=== PATIENT | male | born 1950 | race Caucasian/White ===

== ENCOUNTER → 2020-04-30 | Outpatient (CLI) | payer MEDICARE, SELFPAY ==
[2020-04-30 15:06] VITALS: BMI 33.2
[2020-04-30 21:54] LABS: Absolute Lymphocyte Count 2.02 X10^3/uL (0.83-4.51); Absolute Neutrophil Count 6.6 X10^3/uL (2.0-7.7); Basophil# 0.04 X10^3/uL; Basophil% 0.4 % (0-1); Eosinophil# 0.33 X10^3/uL; Eosinophils% 3.4 % (0-5); Hematocrit 45.6 % (40-54); Hemoglobin 14.5 g/dL (13.0-16.5); Lymphocyte # 2.02 X10^3/ul (4.0); Lymphocyte % 20.8 % (19-41); Mean Corp Hgb Conc 31.8 g/dL (32-36); Mean Corpuscular Volume 97.4 fL (80-94); Mean Platelet Vol. 10.5 fl (6.2-12.0); Monocyte# 0.74 X10^3/uL; Monocyte% 7.6 % (0-10); NRBC Flagged by Analyzer 0 % (0-5); Neutrophil # 6.57 X10^3/uL (2.7-7.7); Neutrophil % 67.6 % (47-70); Platelet Count 214 K/mm3 (150-450); RBC Distribution Width CV 12.8 % (11.6-14.6); RBC Distribution Width SD 45.5 fl (35.1-43.9); Red Blood Count 4.68 M/mm3 (4.6-6.2); White Blood Count 9.7 K/mm3 (4.4-11.0)
[2020-04-30 22:12] LABS: AST(SGOT) 24 U/L (15-37); Alanine Aminotransfer ALT/SGPT 36 U/L (16-61); Albumin, Serum 3.8 g/dL (3.2-5.0); Alkaline Phosphatase 83 U/L (45-117); Anion Gap 3 (5-15); BUN 17 mg/dL (7-18); Calcium,Total 8.8 mg/dL (8.5-10.1); Chloride 105 mmol/L (98-107); Creatinine, Serum 0.77 mg/dL (0.70-1.30); EST Glomerular Filtration Rate 106 mL/min (>60); Est Glom Filt Rate - Afr Amer 129 mL/min (>60); Globulin 3.7 g/dL (2.2-4.2); Glucose 109 mg/dL (74-106); Potassium 4.1 mmol/L (3.5-5.1); Protein, Total 7.5 g/dL (6.4-8.2); Sodium Level 139 mmol/L (136-145)
[2020-05-02 14:09] LABS: ANTINUCLEAR ANTIBODIES DIRECT Positive (Negative); Anti-Centromere B Ab <0.2 AI (0.0-0.9); Anti-Chromatin <0.2 AI (0.0-0.9); Anti-Jo <0.2 AI (0.0-0.9); Anti-Scleroderma-70 AB <0.2 AI (0.0-0.9); RNP Ab 2.9 AI (0.0-0.9); SJOGREN'S Anti-SS-A test < 0.2 AI (0.0-0.9); SJOGREN'S Anti-SS-B test < 0.2 AI (0.0-0.9); Smith Ab <0.2 AI (0.0-0.9)
[2020-05-02 15:28] LABS: Anti-dsDNA Ab 1 IU/mL (0-9)
== END | disposition home or self-care (01) ==
LOC: OLS.AHF 21:49 → LABSPEC 05-01 07:58
PROVIDERS: PCP Nurse Practitioner; Referring Provider Nurse Practitioner; Visit Provider Nurse Practitioner
DX: L98.9 Disorder of the skin and subcutaneous tissue, unspecified (principal)
CPT/HCPCS: 80053; 85025; 86038; 86225; 86235

== ENCOUNTER → 2021-03-30 | Outpatient (CLI) | payer MEDICARE, SELFPAY ==
[2021-03-30 22:15] LABS: Absolute Neutrophil Count 5.5 X10^3/uL (2.0-7.7); Basophil# 0.03 X10^3/uL; Basophil% 0.4 % (0-1); Eosinophil# 0.18 X10^3/uL; Eosinophils% 2.3 % (0-5); Hemoglobin 14.7 g/dL (13.0-16.5); Lymphocyte % 16.8 % (19-41); Mean Corp Hgb Conc 32.7 g/dL (32-36); Mean Corpuscular Hgb 31.1 pg (27.0-32.0); Mean Corpuscular Volume 95.1 fL (80-94); Mean Platelet Vol. 10.8 fl (6.2-12.0); NRBC Flagged by Analyzer 0 % (0-5); Neutrophil # 5.53 X10^3/uL (2.7-7.7); Neutrophil % 71.4 % (47-70); Platelet Count 185 K/mm3 (150-450); RBC Distribution Width CV 12.6 % (11.6-14.6); RBC Distribution Width SD 44.3 fl (35.1-43.9); Red Blood Count 4.73 M/mm3 (4.6-6.2); White Blood Count 7.8 K/mm3 (4.4-11.0)
[2021-03-30 22:43] LABS: AST(SGOT) 26 U/L (15-37); Alanine Aminotransfer ALT/SGPT 41 U/L (16-61); Albumin, Serum 3.8 g/dL (3.2-5.0); Alkaline Phosphatase 79 U/L (45-117); Anion Gap 10 (5-15); BUN 9 mg/dL (7-18); BUN/Creat Ratio 13.2 RATIO (10-20); Calcium,Total 9.2 mg/dL (8.5-10.1); Chloride 104 mmol/L (98-107); Creatinine, Serum 0.68 mg/dL (0.70-1.30); EST Glomerular Filtration Rate 122 mL/min (>60); Est Glom Filt Rate - Afr Amer 148 mL/min (>60); Globulin 3.7 g/dL (2.2-4.2); Glucose 89 mg/dL (74-106); Potassium 3.9 mmol/L (3.5-5.1); Protein, Total 7.5 g/dL (6.4-8.2); Sodium Level 140 mmol/L (136-145)
== END | disposition home or self-care (01) ==
PROVIDERS: PCP Nurse Practitioner; Visit Provider Nurse Practitioner
DX: M32.9 Systemic lupus erythematosus, unspecified (principal)
CPT/HCPCS: 80053; 85025

== ENCOUNTER → 2021-05-14 09:26 | Outpatient (CLI) | payer MEDICARE, SELFPAY ==
--- NOTE | 2021-05-14 09:45 | RAD_ITS ---
STUDY: X-RAY - ESOPHAGUS (BARIUM SWALLOW) WITH FLUOROSCOPY REASON FOR EXAM: Male, 70 years old. GERD. Dysphagia for 2 weeks. TECHNIQUE: 15 view(s) of the esophagus were obtained following swallowing of barium. FLUOROSCOPY TIME (if supplied): (61 seconds) minutes/seconds COMPARISON: None. FINDINGS: There is no demonstrated esophageal foreign body. There is dilatation of the esophagus with poor peristaltic activity. There is circumferential narrowing of the gastroesophageal junction. This is suggestive of achalasia. The patient ingested a 12 mm tablet of barium without any difficulty. There is atherosclerotic tortuosity of the aortic arch and descending thoracic aorta. Normal visualized pulmonary parenchyma. Normal visualized osseous structures of the thorax. RAD/Esophagus Dual Contrast IMPRESSION: Findings suggestive of achalasia. Electronically Signed: Jimmy You MD at 14:28 EST , Service support ,
== END ==
PROVIDERS: PCP Nurse Practitioner; Visit Provider Otolaryngology
DX: K21.9 Gastro-esophageal reflux disease without esophagitis (principal)
CPT/HCPCS: 74221

== ENCOUNTER 2021-07-20 08:43 | Outpatient (CLI) | payer OTHER, MEDICARE, SELFPAY | END 2021-07-20 23:59 | disposition short-term general hospital (02) | LOC: LABSPEC 08:44 | PROVIDERS: PCP Nurse Practitioner; Visit Provider Physician Assistant Surgical | DX: Z20.822 Contact with and (suspected) exposure to COVID-19 (principal) | CPT/HCPCS: 87635; U0003; U0005 ==

== ENCOUNTER → 2022-06-30 | Outpatient (CLI) | payer MEDICARE, SELFPAY ==
--- NOTE | 2022-06-30 14:55 | RAD_ITS ---
STUDY: X-RAY - LUMBAR SPINE REASON FOR EXAM: Male, 71 years old. Back pain. TECHNIQUE: 3 view(s) of the lumbar spine were obtained. COMPARISON: None FINDINGS: There is straightening of the normal lumbar lordosis. There is no substantial scoliosis. There is a normal alignment of the vertebrae. There is multilevel endplate spondylosis of the lumbar vertebrae. There is multi-level degenerative disc disease with multi-level disc space narrowing. There is no evidence of acute fracture or loss of vertebral axial height. The soft tissue structures are unremarkable. RAD/Lumbar Spine 2 or 3 Views IMPRESSION: Straightened lumbar lordosis with degenerative changes of the lumbar spine. No acute fracture or subluxation. Electronically Signed: Luis Cunningham DO at 22:45 EST ,
== END | disposition home or self-care (01) ==
PROVIDERS: PCP Nurse Practitioner; Referring Provider Anesthesiology Pain Medicine; Visit Provider Anesthesiology Pain Medicine
DX: M47.816 Spondylosis without myelopathy or radiculopathy, lumbar region (principal); M51.36 Other intervertebral disc degeneration, lumbar region
CPT/HCPCS: 72100

== ENCOUNTER → 2022-08-03 | Outpatient (CLI) | payer MEDICARE, SELFPAY ==
--- NOTE | 2022-08-03 10:08 | RAD_ITS ---
EXAM: XR SACRUM AND COCCYX, 2 OR MORE VIEWS CLINICAL INDICATION: FALL fell x 2weeks ago, pain s/c TECHNIQUE: Frontal and lateral views of the sacrum and coccyx. This report was created using [employer] technology. COMPARISON: None. FINDINGS: SACRUM/COCCYX: Unremarkable. No displaced fracture. No destructive or sclerotic lesions. Note that overlapping bowel shadows may however obscure fine detail in the frontal view. Sacroiliac joints are unremarkable. DISC SPACES: Degenerative findings of the hips. Degenerative change of the lumbar spine. SOFT TISSUES: Unremarkable. No soft tissue swelling or gas. RAD/Sacrum-Coccyx min 2 Views IMPRESSION: Degenerative findings of the hips. Electronically Signed: Pablo Mcnulty MD at 19:09 EST Reading Location ID and State: [id number] / [place] , Service support ,
--- NOTE | 2022-08-03 10:08 | RAD_ITS ---
INDICATION: FALL EXAMINATION/TECHNIQUE: X-RAY - XR Pelvis 1 or 2 Views COMPARISON: None. FINDINGS: PELVIC BONES: No displaced fracture, destructive or sclerotic lesions. Note that overlapping bowel shadows may however obscure fine detail. Sacroiliac joints are unremarkable. No widening of the pubic symphysis. HIPS: The articular structures are unremarkable. Degenerative findings of the hips. SOFT TISSUES: Vascular calcification. RAD/Pelvis 1 or 2 Views IMPRESSION: Degenerative findings of the hips. Electronically Signed: Pablo Mcnulty MD at 19:09 EST ,
== END | disposition home or self-care (01) ==
LOC: RAD 10:04
PROVIDERS: PCP Nurse Practitioner; Referring Provider Anesthesiology Pain Medicine; Visit Provider Anesthesiology Pain Medicine
DX: Z04.3 Encounter for examination and observation following other accident (principal); M16.0 Bilateral primary osteoarthritis of hip
CPT/HCPCS: 72170; 72220

== ENCOUNTER → 2022-09-16 | Outpatient (CLI) | payer MEDICARE, SELFPAY ==
--- NOTE | 2022-09-16 10:22 | RAD_ITS ---
STUDY: X-RAY - PELVIS AND RIGHT HIP REASON FOR EXAM: Male, 71 years old. Pain. TECHNIQUE: 3 views of the pelvis and hip on 4 images. COMPARISON: August 03, 2022 FINDINGS: There is a non-specific bowel gas pattern. Stable ovoid calcification projected over the right hip most likely representing an intra-articular osteochondral body measuring 18 mm in diameter. Osteopenia. Normal bilateral iliac wings, sacroiliac joints and visualized sacrum. Normal bilateral superior and inferior pubic rami. Normal pubic symphysis. Normal bilateral ischial tuberosities. Moderate arthrosis of both hips. Sclerosis and cystic changes in both humeral heads compatible with avascular necrosis. No femoral head collapse. RAD/HIP, UNI W/ Pelvis 2-3 Views IMPRESSION: Stable osteopenia with moderate arthrosis of both hips. Changes in both femoral heads compatible with avascular necrosis without collapse. Stable intra-articular osteochondral body of the right hip. Electronically Signed: Prince Pinzon, at 14:53 EDT ,
== END | disposition home or self-care (01) ==
LOC: RAD 10:21
PROVIDERS: PCP Nurse Practitioner; Visit Provider Anesthesiology Pain Medicine
DX: M25.559 Pain in unspecified hip (principal)
CPT/HCPCS: 73502

== ENCOUNTER → 2022-10-16 | Outpatient (CLI) | payer MEDICARE, SELFPAY ==
--- NOTE | 2022-10-16 09:30 | MRI_ITS ---
PROCEDURE: LUMBAR SPINE MRI WITHOUT CONTRAST COMPARISONS: None CLINICAL INDICATION: Low back pain, RIGHT leg pain with radiculopathy, prior surgery TECHNIQUE: Noncontrast lumbosacral spine MRI study was performed multiple sequences in sagittal and axial planes. FINDINGS: Alignment of the lumbosacral spine is normal. Normal vertebral marrow signal. Normal partially visualized sacroiliac joints. The conus medullaris terminates at L1. No abnormal signal within the visualized cord. L1-L2: Disc bulge. Crowding of both traversing L2 nerve roots in the lateral recesses. L2-L3: Disc bulge and facet arthrosis. Mild spinal canal stenosis with impingement upon both traversing L3 nerve roots in the lateral recesses. L3-L4: Disc bulge and facet arthrosis. Mild spinal canal stenosis and compression of both traversing L4 nerve roots in the lateral recesses. Mild bilateral neural foraminal stenosis. L4-L5: Disc bulge. Crowding of both traversing L5 nerve roots in the lateral recesses. Mild bilateral neural foraminal stenosis. L5-S1: 9 mm retrolisthesis. Impingement on both traversing S1 nerve roots in the lateral recesses. Mild bilateral neural foraminal stenosis. Mild paraspinous muscle fatty infiltration. MRI/Spine Lumbar (Routine) IMPRESSION: 1. Disc bulge at all levels with crowding of the traversing nerve root in the lateral recesses, including bilateral nerve root compression at L3-4. 2. Mild bilateral neural foraminal stenosis at L3-4, L4-5, L5-S1. 3. 9 mm L5-S1 retrolisthesis. Electronically Signed: Marco Sheehan MD at 22:49 EDT ,
== END | disposition home or self-care (01) ==
LOC: MRI 08:52
PROVIDERS: PCP Nurse Practitioner; Referring Provider Orthopaedic Surgery; Visit Provider Orthopaedic Surgery
DX: M54.16 Radiculopathy, lumbar region (principal)
CPT/HCPCS: 72148

== ENCOUNTER → 2023-06-16 | Outpatient (CLI) | payer MEDICARE, SELFPAY ==
--- NOTE | 2023-06-16 12:25 | CT_ITS ---
STUDY: CT ABDOMEN AND PELVIS WITH CONTRAST REASON FOR EXAM: Male, 72 years old. Bilateral inguinal hernia RADIATION DOSAGE (If Supplied By Facility): CTDIvol = ( 22.45 ) mGy, DLP = ( 1135.10 ) mGycm TECHNIQUE: Transaxial images were obtained from the dome of the diaphragm to the symphysis pubis with oral contrast. Oral and amp; IV Readi-CAT and amp; 100mL Isovue-370 was administered. Sagittal and coronal images were reconstructed. Individualized dose optimization techniques were used for this CT. COMPARISON: None. FINDINGS: The visualized lung bases are unremarkable. Coronary artery calcification. There is decreased attenuation of the liver consistent with steatosis. Normal gallbladder and extrahepatic biliary system. There are multiple benign calcified granulomata of the spleen. Normal pancreas. Normal bilateral adrenal glands. Normal right kidney. Normal left kidney. Normal visualized stomach. Normal small intestine. Moderate amount of fecal material is seen in the colon. The appendix is visualized and appears normal. There is diffuse atherosclerotic calcification of the abdominal aorta, without a demonstrated aneurysm. Normal inferior vena cava. Normal retroperitoneum. Normal urinary bladder. Moderate bilateral inguinal hernias left greater than right containing nondilated small bowel loops. There are diffuse degenerative changes of the visualized lumbar spine. Straightening of the normal lumbar lordosis. Osteoarthritis of the hip joints. CT/Abdomen/Pelvis WITH Contrast IMPRESSION: Fatty attrition of the liver. Moderate size bilateral inguinal hernias containing nondilated small bowel loops. Electronically Signed: Jimmy You MD at 14:04 EST ,
[2023-06-16 13:05] LABS: CREATININE FINGERSTICK 1.2 mg/dL (0.70-1.30); EGFR FINGERSTICK > 60.0000 mL/min (>60)
== END | disposition home or self-care (01) ==
LOC: CT 12:25
PROVIDERS: PCP Nurse Practitioner; Referring Provider Surgery; Visit Provider Surgery
DX: K40.20 Bilateral inguinal hernia, without obstruction or gangrene, not specified as recurrent (principal)
CPT/HCPCS: 74177; Q9967

== ENCOUNTER → 2023-08-03 | Outpatient (CLI) | payer MEDICARE, SELFPAY ==
--- NOTE | 2023-08-03 14:33 | RAD_ITS ---
EXAM: XR LUMBOSACRAL SPINE, 2 OR 3 VIEWS CLINICAL INDICATION: RADICULOPATHY LUMBAR REGION TECHNIQUE: Frontal and lateral views of the lumbar spine and sacrum. COMPARISON: No relevant prior studies available. FINDINGS: VERTEBRAE: There is mild bony neural foraminal narrowing at L4-5 and L5-S1. Preserved vertebral body height. No fracture. No spondylolisthesis. Preservation of the normal lumbar lordosis. No significant facet arthropathy. DISC SPACES: There is disc space narrowing at L3-4, L4-5 and L5-S1. There are anterior osteophytes at these levels. GASTROINTESTINAL TRACT: Unremarkable as visualized. Included bowel gas pattern is non-obstructive. RAD/Lumbar Spine 2 or 3 Views IMPRESSION: Degenerative changes with disc space narrowing and bony neural foraminal narrowing in the lower lumbar spine. There are no acute osseous abnormalities. Electronically Signed: Shin Box MD at 20:28 EST ,
--- OUTSIDE RECORDS SUMMARY | 2023-08-03 15:15 | XMS RPT_ITS | CCD ---
Author Name Unknown Address [address] [place] [address] Organization [facility] Care Team Providers Care Lead Ramp Service Man Name Role Phone Donell Raymond MD Unavailable Katarina Cox Unavailable Unavailable Marco, Padmini Unavailable Unavailable Marco, Padmini Unavailable Unavailable Lindquist, Shaquille Unavailable Unavailable Marco, Padmini Unavailable Unavailable Marco, Padmini Unavailable Unavailable Lindquist, Shaquille Unavailable Unavailable Marco, Padmini Unavailable Unavailable Marco, Padmini Unavailable Unavailable Mitra Hernandez Primary Care Provider Mitra Hernandez Primary Care Provider [phone] Salas Gonzalez) Primary Care Provider [phone] Mitra Hernandez Primary Care Provider Mitra Hernandez Primary Care Provider KATARINA COX Attending Unavailable MITRA HERNANDEZ Primary Care Unavailable KATARINA COX Attending Unavailable MITRA HERNANDEZ Primary Care Unavailable Allergies Allergy Classification Reported Allergen(s) Allergy Type Date of Onset Reaction(s) Facility (1 source) ANTI-BIOTIC ALLERGY(VERIFY) drug allergy 8 [facility] Work Phone: (1 source) Other Propensity to adverse reactions 7 [facility] [place] (1 source) Ciprofloxacin / fluocinolone Drug Allergy 2 Rash [facility] (5 sources) Ciprofloxacin / fluocinolone Drug Allergy 2 Rash [facility] NEGATED: Highlighted row has been ruled out! (1 source) Other Propensity to adverse reactions 7 [facility] Medications Current Medications Medication Drug Class(es) Dates Sig (Normalized) Sig (Original) acetaminophen 500 mg oral tablet (5 sources) take 5-6 tablets by mouth every four hours as needed for pain acetaminophen (Tylenol) 500 MG tablet Take by mouth every 4 hours as needed for mild pain (1-3). 5-6 tabs a day 0 Active Acetaminophen / HYDROcodone (5 sources) Opioid Agonist HYDROcodone-acet flynn ophen ([place]) 5-325 MG tablet cyclobenzaprine hydrochloride 5 mg oral tablet (5 sources) Muscle Relaxant cyclobenzaprine (Flexeril) 5 MG tablet Take 5 mg by mouth in the morning and 5 mg at noon and 5 mg before bedtime. 0 Active docusate sodium 50 mg oral capsule (5 sources) docusate sodium (Colace) 50 MG capsule Take by mouth 2 times daily. 0 Active furosemide 40 mg oral tablet (6 sources) Loop Diuretic Start: 05-23-2022 take 1 tablet by mouth once daily furosemide (Lasix) 40 MG tablet TAKE 1 TABLET BY MOUTH DAILY 90 tablet 3 05/23/2022 Active Completed/Discontinued Medications Medication Drug Class(es) Dates Sig (Normalized) Sig (Original) aspirin 81 mg oral tablet (8 sources) Nonsteroidal Anti-inflammatory Drug Start: 11-15-2017 ASPIRIN 81 MG TABS Once daily ASPIRIN [id number] Deidra Balderas PA-C Problems Active Problems Problem Classification Problem Date Documented Da te Episodic/Chronic Cardiac arrest and ventricular fibrillation (7 sources) Ventricular fibrillation; Translations: [Ventricular fibrillation] Onset: 07-20-2017 07-20-2017 Chronic Cardiac dysrhythmias (15 sources) Paroxysmal atrial fibrillation; Translations: [Paroxysmal atrial fibrillation] Onset: 06-01-2022 Chronic Congestive heart failure; nonhypertensive (1 source) Chronic systolic heart failure; Translations: [Chronic systolic (congestive) heart failure] Chronic Coronary atherosclerosis and other heart disease (19 sources) Coronary arteriosclerosis; Translations: [Atherosclerotic heart disease of knik coronary artery without angina pectoris] Onset: 06-29-2017 06-29-2017 Chronic Disorders of lipid metabolism (14 sources) Hyperlipidemia; Translations: [Mixed hyperlipidemia] Onset: 07-20-2017 07-20-2017 Chronic Esophageal disorders (3 sources) Achalasia of esophagus; Translations: [Achalasia of cardia] Onset: 11-07-2023 10-13-2023 Episodic Melanomas of skin (3 sources) Malignant melanoma; Translations: [Malignant melanoma of skin, unspecified] Onset: 05-10-2023 04-15-2023 Chronic Occlusion or stenosis of precerebral arteries (1 source) Left carotid artery stenosis; Translations: [Occlusion and stenosis of left carotid artery] Chronic Other connective tissue disease (1 source) Impingement syndrome of left shoulder region; Translations: [Impingement syndrome of left shoulder] Onset: 08-12-2017 08-12-2017 Other lower respiratory disease (1 source) Dyspnea; Translations: [Shortness of breath] Episodic Sera-; endo-; and myocarditis; cardiomyopathy (except that caused by tuberculosis or sexually transmitted disease) (7 sources) Cardiomyopathy; Translations: [Cardiomyopathy, unspecified] Onset: 08-13-2015 07-20-2017 Chronic Residual codes; unclassified (1 source) Bilateral lower limb edema; Translations: [Localized edema] Episodic Spondylosis; intervertebral disc disorders; other back problems (4 sources) Other spondylosis, cervical region; Translations: [Spondylosis without myelopathy or radiculopathy, cervical region] Onset: 08-23-2017 Chronic Substance-related disorders (11 sources) Smoker; Translations: [Nicotine dependence, unspecified, uncomplicated] Onset: 06-01-2022 Chronic Unclassified (2 sources) Other persistent atrial fibrillation; Translations: [Other persistent atrial fibrillation (HCC)] Onset: 06-01-2022 Past or Other Problems Problem Classification Problem Date Documented Da te Episodic/Chronic Other circulatory disease (8 sources) Carotid bruit; Translations: [Other specified symptoms and signs involving the circulatory and respiratory systems] Onset: 06-01-2022 Episodic Other circulatory disease (2 sources) Other specified symptoms and signs involving the circulatory and respiratory systems; Translations: [Other specified symptoms and signs involving the circulatory and respiratory systems] Onset: 06-01-2022 Episodic Other connective tissue disease (6 sources) Impingement syndrome of left shoulder region; Translations: [Impingement syndrome of left shoulder] Onset: 08-12-2017 08-12-2017 Episodic Spondylosis; intervertebral disc disorders; other back problems (15 sources) Radiculopathy, cervical region; Translations: [Spinal stenosis, cervical region] Onset: 08-12-2017 11-15-2017 Episodic Unclassified (1 source) Problem Results Test Name Value Interpretation Reference Range Facil ity Vital Signs Date Time Vital Sign Value Performing Clinician Facility 05-10-2023 09:12-0500 Body height 188 cm Katarina Cox MD Work Phone: [facility] 05-10-2023 09:12-0500 Body mass index (BMI) [Ratio] 26.96 kg/m2 Katarina Cox MD Work Phone: [facility] 05-10-2023 09:12-0500 Body weight 95.25 kg Katarina Cox MD Work Phone: [facility] 05-10-2023 09:12-0500 Diastolic blood pressure 60 mm[Hg] Katarina Cox MD Work Phone: [facility] 05-10-2023 09:12-0500 Heart rate 84 /min Katarina Cox MD Work Phone: [facility] 05-10-2023 09:12-0500 Systolic blood pressure 120 mm[Hg] Katarina Cox MD Work Phone: [facility] 11-02-2022 09:08-0400 Body height 188 cm Katarina Cox MD Work Phone: [facility] 11-02-2022 09:08-0400 Body mass index (BMI) [Ratio] 27.99 kg/m2 Katarina Cox MD Work Phone: [facility] 11-02-2022 09:08-0400 Body weight 98.88 kg Katarina Cox MD Work Phone: [facility] 11-02-2022 09:08-0400 Diastolic blood pressure 70 mm[Hg] Katarina Cox MD Work Phone: [facility] 11-02-2022 09:08-0400 Heart rate 70 /min Katarina Cox MD Work Phone: [facility] 11-02-2022 09:08-0400 Systolic blood pressure 110 mm[Hg] Katarina Cox MD Work Phone: [facility] NEGATED: Highlighted [id number] 10:38-0400 BMI (Body Mass Index) 30.28 kg/m2 Jake Whalen AT [facility] Work Phone: NEGATED: Highlighted [id number] 10:38-0400 BP Diastolic 75 mm[Hg] Jake Whalen AT [facility] Work Phone: NEGATED: Highlighted [id number] 10:38-0400 BP Systolic 111 mm[Hg] Jake Whalen AT [facility] Work Phone: NEGATED: Highlighted [id number] 10:38-0400 Height 187.96 cm Jake Whalen AT [facility] Work Phone: NEGATED: Highlighted [id number] 10:38-0400 Height 188 cm Jake Whalen AT [facility] Work Phone: NEGATED: Highlighted [id number] 10:38-0400 Pulse (Heart Rate) 139 /min Jake Whalen AT [facility] Work Phone: NEGATED: Highlighted [id number] 10:38-0400 Weight 106.6 kg Jake Whalen AT [facility] Work Phone: NEGATED: Highlighted [id number] 10:38-0400 Weight 107 kg Jake Whalen AT [facility] Work Phone: Encounters Encounter Date Encounter Type Care Provider Facility Start: 06-23-2023 Refill Katarina russ MD Work Phone: [facility] Start: 06-06-2023 Telephone encounter Katarina hobbs MD Work Phone: [facility] Procedures Date Procedure Procedure Detail Performing Clinician Start: 05-10-2023 Ecg routine ecg w/le ast 12 lds w/i&r Katarina Cox MD Work Phone: Start: 11-02-2022 Ecg routine ecg w/le ast 12 lds w/i&r Katarina Cox MD Work Phone: Start: 05-19-2021 Radiologic exam ches t 2 views Katarina Cox MD Work Phone: Start: 04-15-2020 Echo tthrc r-t 2d w/wom-mode compl spec&colr d Katarina Cox Work Phone: Start: 08-28-2019 Lipid 1996 panel - S sam or Plasma Katarina Cox MD Work Phone: Start: 11-15-2017 End: 11-15-2017 Blood pressure within normal parameters - no follow-up required Donell Raymond MD Work Phone: Start: 11-15-2017 End: 11-15-2017 BMI documented as above normal parameters - follow-up documented Donell Raymond MD Work Phone: Start: 11-15-2017 End: 11-15-2017 Current medications documented Donell Raymond MD Work Phone: Start: 11-15-2017 End: 11-15-2017 Pain assessment documented as positive - no follow-up/reason not given Donell Raymnod MD Work Phone: Start: 11-15-2017 End: 11-15-2017 Pt tobacco screen rcvd tlk Donell Raymond MD Work Phone: Plan of Treatment Date Care Activity Detail Author Start: 08-28-2024 Lipid panel Lipid Panel [facility] Start: 11-08-2023 End: 11-08-2023 Patient encounter procedure 11/08/2023 9:15 AM EDT Office Visit [facility] [address] [place] [address] Katarina Cox MD [address] [place], [place] [id number] [facility] Start: 06-13-2023 End: 06-13-2024 Comprehensive metabolic 1998 panel - Serum or Plasma Comprehensive metabolic panel Lab Routine Mixed hyperlipidemia Expected: 06/13/2023 (Approximate), Expires: 06/13/2024 [facility] Work Phone: Immunizations Immunization Date Immunization Notes Care Provider Teresa montero 07-20-2010 influenza virus vaccine, unspecified formulation Katarina Cox MD Work Phone: [employer] [facility] No information available. Jake Whalen AT [facility] Work Phone: Payers Date Payer Category Payer Medicare MMO MEDICARE MMO MEDADVANTAGE PPO [id number] 2021-Present [phone] [address] [place] [address] PPO [id number] 2021 Medicare MEDICAL MUT[employer] M EDICARE MMO MEDICARE ADVANTAGE [id number] 2021-Present [address] [place] [address] Medicare HMO [id number] 2021 Medicare [id number] 2017 Medicare MEDICARE MEDICAR E PART A AND B [id number] 2017-Present [phone] [address] [address] [place] [address] [id number] Unknown Social History Date Type Detail Facility Start: 04-08-2020 End: 06-01-2022 Tobacco smoking status NHIS [facility] Start: 07-04-2013 History of tobacco use [facility] Start: 04-08-2020 End: 06-01-2022 Tobacco use and exposure Never used [facility] Start: 04-08-2020 End: 05-19-2021 Alcohol intake Current non-drinker of alcohol (finding) [facility] Start: 1950 Sex Assigned At Not on file M gilberto [facility] [place] Start: 10-23-2022 End: 11-02-2022 Exposure to SARS-CoV-2 (event) Not sure [facility] Start: 05-19-2021 End: 05-10-2023 Alcohol intake [facility] Work Phone: Start: 08-04-2021 Tobacco smoking status NHIS Occasional tobacco smoker [facility] Start: 11-02-2022 End: 05-10-2023 Alcohol intake Current drinker of alcohol (finding) [facility] Start: 06-01-2022 Alcohol Comment 2 cocktails/some day s [facility] Start: 05-10-2023 Tobacco use panel [facility] NEGATED: Highlighted rowStart: 11-15-2017 End: 11-15-2017 Alcohol use Current every day smoker [facility] Work Phone: NEGATED: Highlighted rowStart: 11-15-2017 End: 11-15-2017 Assertion Current every day smoker [facility] Work Phone: NEGATED: Highlighted rowStart: 11-15-2017 End: 11-15-2017 Details of drug misuse behavior DRUG USE No [facility] Work Phone: NEGATED: Highlighted rowStart: 11-15-2017 End: 11-15-2017 Employment detail OCCUPATION#1 Retail sales [facility] Work Phone: NEGATED: Highlighted rowStart: 11-15-2017 End: 11-15-2017 Tobacco use and exposure SMOK ADVICE Yes [facility] Work Phone: NEGATED: Highlighted rowStart: SARITHAF History of tobacco use Passive smoker [facility] Clinical Notes 10-09-2021 to 06-23-2023 Telephone Encounter - Sheryl Carranza RN - 06/23/2023 2:09 PM ESTTelephone Encounter - Sheryl Carranza RN - 06/23/2023 2:09 PM ESTTelephone Encounter - MADHAVI Siegel - 06/13/2023 5:17 PM EST Note Date & Type Note Facility 06-23-2023 Telephone encounter Note [facility] 05-10-23 NOV 11-08-23 06-16-23 bmp/creat 1.2 in 09-09-21 CBC [facility] 06-23-2023 Miscellaneous Notes SHARON 05-10-23 11-08-23 06-16-23 bmp/creat 1.2 in 09-09-21 CBC documented in this encounter [facility] 06-13-2023 Telephone encounter Note Please print and fax last office visit which has pre op risk assessment /addendum included. [facility] 06-13-2023 Miscellaneous Notes Please print and fax last office visit which has pre op risk assessment /addendum included. Last OV 05-10-23 NOV 11-08-23 Lipid 08-28-20 LFT 09-09-21 Will order CMP/Lipid Cardiac clearance received fro [facility] Surgical asso. For enoc inguinal hernia repair. No date given Last seen05/10/23 fu 11/08/23 documented in this encounter [facility] 06-13-2023 Telephone encounter Note Last OV 05-10-23 NOV 11-08-23 Lipid 2-25-20 LFT 09-09-21 Will order CMP/Lipid [facility] 06-06-2023 Telephone encounter Note Cardiac clearance received fro [facility] Surgical asso. For enoc inguinal hernia repair. No date given Last seen05/10/23 fu 11/08/23 [facility] 05-10-2023 Note Addendum: Jun 06 I was asked to provide a pre-operative cardiac evaluation for Mr Cardona who is undergoing bilateral inguinal hernia repair. The patient denies cardiac symptoms. The patient is active and can undergo this low risk procedure at a low perioperative cardiac risk. No cardiac testing or changes in medications are needed prior to the procedure. The oral anticoagulation can be stopped 3 days prior to the procedure, and resumed as soon as possible from a surgical standpoint. See my note below for a detailed cardiac history and the current medications. Katarina Cox MD [facility] [place] [facility]rophysiology Follow Up Clinic Note Chief Complaint: Chief Complaint Patient presents with Coronary Artery Disease Atrial Fibrillation Persistent Cardiomyopathy Ischemic Nicotine Dependence History of Present Illness: Marcelino Cardona is a 72 y.o. male referred by Dr. Lara in Aug 2018 for follow-up of his CAD. [facility] he had an IWMI complicated by a VF arrest. A cath showed a distal RCA lesion that was stented. The prox RCA and the left main had 20% stenoses and the LAD and Circ were free of disease. In Jul 2015, prior to leaving [place], he had an echo and a nuclear stress test that by his report were both normal. In Apr 2020 he had a lot of PACs and PVCs on his ECG and c/o some fatigue. An echo showed an LVEF in the 30-40% range (officially read as 35%, 40% or so by my estimate). In May 2020 I started him on GDMT. In November 2020 he felt more dizzy, more fatigued and more dyspneic after starting the small doses of beta-lindsey and MADI inhibitor. He demanded that we stop them, despite my advice against it, and see how he felt without them. When I saw him in May 2021 he was feeling more fatigued, short of breath, and more dyspneic with exertion. An ECG showed atrial fibrillation with RVR in the 90s. I started him on Toprol Lasix and Xarelto. He would not let me restart the MADI inhibitor. He was also diagnosed with melanoma limited to the skin. He has declined chemo or skin abrasion. He had a normal bone marrow biopsy with Dr. Celis. He returns today feeling well from a CV standpoint. He denies CP, palpitation, SOB, PND, orthopnea, dizziness, or syncope. He does not exercise routinely mostly on account of his DJD. He decided against hip surgery and bilateral inguinal repairs, mostly because he is scared . He has not been taking his BP at home much. An ECG today shows Afib with a VR in the low 60s and frequent PVCs. The echo in Apr 2020 showed an LVEF of 35% (more like 40% by my review) and a severely dilated LA. Assessment and Plan: 1. Permanent atrial fibrillation: Probably started sometime in Apr/May 2021. He feels at baseline after starting metoprolol and Lasix. We had spoken about cardioversion, but he is now asymptomatic and reluctant to procedure/taking meds. He is willing to continue with Xarelto 20 mg daily and a beta-lindsey. He declined restarting an MADI or other meds as he felt dizzy with low BPs. 2. Ischemic Cardiomyopathy: His LV function is definitely not normal. Likely related to his CA. He has no symptoms of CAD or HF. The atrial fibrillation made him decompensate some. I had tried to convince him to stay on the small doses of metoprolol and lisinopril in the past, but he was adamant about stopping them as he felt more dizzy and more fatigued on the drugs. He should get a repeat echo or an MRI in the future, but he is reluctant to doing that. We also spoke about an ICD for SCD prophylaxis and he declined. 3. Frequent atrial and ventricular ectopy: He is asymptomatic. 4. CAD. Silent. Doing well from this standpoint. Continue with current meds. Cholesterol well controlled. 5. Current smoker. He was advised to stop, even the cigars. Given his CAD I explained the importance. I asked him in the past to be screened for AAA but he did not want to incur the cost. 6. Left Carotid Bruit. Following this for now as he is averse to testing 7. Melanoma: Apparently limited to the skin. He declined chemo or skin abrasion therapy. Past Medical History: Past Medical History: Diagnosis Date CAD (coronary artery disease) 01/07/2009 Inferior CA BMS to RCA Cardiomyopathy (HCC) 08/13/2015 NST EF 48% Heart attack (HCC) Hyperlipidemia Lupus (systemic lupus erythematosus) (CMS/HCC) (HCC) 05/2020 Obesity Ventricular fibrillation (HCC) Past Surgical History Past Surgical History: Procedure Laterality Date CARDIAC PROCEDURE 01/07/2009 CORONARY ANGIOPLASTY 01/07/2009 BMS to RCA CORONARY ANGIOPLASTY WITH STENT PLACEMENT 2008 SPINE SURGERY 1995 Family History Family History Problem Relation Name Age of Onset Hyperlipidemia Father Obesity Mother Diabetes Mother Heart disease Father High Blood Pressure Sister Kidney disease Sister Diabetes Sister High Blood Pres (more content not included)... [facility] 05-10-2023 History of Presen t illness Narrative [facility] [place] [facility]Electrophysiology Follow Up Clinic Note Chief Complaint: Chief Complaint Patient presents with Coronary Artery Disease Atrial Fibrillation Persistent Cardiomyopathy Ischemic Nicotine Dependence History of Present Illness: Marcelino Cardona is a 72 y.o. male referred by Dr. Lara in Aug 2018 for follow-up of his CAD. [facility] In [facility], he had an IWMI complicated by a VF arrest. A cath showed a distal RCA lesion that was stented. The prox RCA and the left main had 20% stenoses and the LAD and Circ were free of disease. In Jul 2015, prior to leaving [place], he had an echo and a nuclear stress test that by his report were both normal. In Apr 2020 he had a lot of PACs and PVCs on his ECG and c/o some fatigue. An echo showed an LVEF in the 30-40% range (officially read as 35%, 40% or so by my estimate). In May 2020 I started him on GDMT. In November 2020 he felt more dizzy, more fatigued and more dyspneic after starting the small doses of beta-lindsey and MADI inhibitor. He demanded that we stop them, despite my advice against it, and see how he felt without them. When I saw him in May 2021 he was feeling more fatigued, short of breath, and more dyspneic with exertion. An ECG showed atrial fibrillation with RVR in the 90s. I started him on Toprol Lasix and Xarelto. He would not let me restart the MADI inhibitor. He was also diagnosed with melanoma limited to the skin. He has declined chemo or skin abrasion. He had a normal bone marrow biopsy with Dr. Celis. He returns today feeling well from a CV standpoint. He denies CP, palpitation, SOB, PND, orthopnea, dizziness, or syncope. He does not exercise routinely mostly on account of his DJD. He decided against hip surgery and bilateral inguinal repairs, mostly because he is scared . He has not been taking his BP at home much. An ECG today shows Afib with a VR in the low 60s and frequent PVCs. The echo in Apr 2020 showed an LVEF of 35% (more like 40% by my review) and a severely dilated LA. Assessment and Plan: 1. Permanent atrial fibrillation: Probably started sometime in May 2021. He feels at baseline after starting metoprolol and Lasix. We had spoken about cardioversion, but he is now asymptomatic and reluctant to procedure/taking meds. He is willing to continue with Xarelto 20 mg daily and a beta-lindsey. He declined restarting an MADI or other meds as he felt dizzy with low BPs. 2. Ischemic Cardiomyopathy: His LV function is definitely not normal. Likely related to his CA. He has no symptoms of CAD or HF. The atrial fibrillation made him decompensate some. I had tried to convince him to stay on the small doses of metoprolol and lisinopril in the past, but he was adamant about stopping them as he felt more dizzy and more fatigued on the drugs. He should get a repeat echo or an MRI in the future, but he is reluctant to doing that. We also spoke about an ICD for SCD prophylaxis and he declined. 3. Frequent atrial and ventricular ectopy: He is asymptomatic. 4. CAD. Silent. Doing well from this standpoint. Continue with current meds. Cholesterol well controlled. 5. Current smoker. He was advised to stop, even the cigars. Given his CAD I explained the importance. I asked him in the past to be screened for AAA but he did not want to incur the cost. 6. Left Carotid Bruit. Following this for now as he is averse to testing 7. Melanoma: Apparently limited to the skin. He declined chemo or skin abrasion therapy. Past Medical History: Past Medical History: Diagnosis Date CAD (coronary artery disease) 01/07/2009 Inferior CA BMS to RCA Cardiomyopathy ([facility]) 08/13/2015 NST EF 48% Heart attack ([facility]) Hyperlipidemia Lupus (systemic lupus erythematosus) ([facility]/HCC) ([facility]) 05/2020 Obesity Ventricular fibrillation ([facility]) Past Surgical History Past Surgical History: Procedure Laterality Date CARDIAC PROCEDURE 01/07/2009 CORONARY ANGIOPLASTY 01/07/2009 BMS to RCA CORONARY ANGIOPLASTY WITH STENT PLACEMENT 2008 SPINE SURGERY 1995 Family History Family History Problem Relation Name Age of Onset Hyperlipidemia Father Obesity Mother Diabetes Mother Heart disease Father High Blood Pressure Sister Kidney disease Sister Diabetes Sister High Blood Pressure Mother Asthma Brother Obesity Sister Social History Social History Tobacco Use Smoking status: Every Day Types: Cigars Start date: 2013 Passive exposure: Never Smokeless tobacco: Never Substance Use Topics Alcohol use: Yes Alcohol/week: 6.0 standard drinks of alcohol Types: 6 Standard drinks or equivalent per week Comment: 2 cocktails/some days Drug use: No Comment: caffeine: 3 cups coffee/day Medications: Reviewed Allergies: Reviewed Review of Systems: All other systems were reviewed and are negative other than as noted in the HPI. Physical Examination: Vitals: Blood pressure 120/60, pulse 84, height 6' 2 (1.88 m), weight 210 lb (95.3 kg). Constitutional: Appears well kept and looks stated age; in NAD Psychiatric: A &O x3 Mood is pleasant; Affect is appropriate Musculoskeletal: Normocephalic; no joint swelling; gait steady ; 5/5 muscle strength bilaterally in upper and lower extremities; no clubbing or cyanosis HEENT: Pupils are equal and round; Conjunctiva are not injected; Sclera are non-icteric; Airway and Nares are patent; Ears without external abnormalities. Mucosa is pink; Dentition is normal Neck: Supple; No JVD: Left carotid Bruits; No thyromegaly; No lymphadenopathy Respiratory: Lungs are clear with no rales or wheezes. Respiratory effort is normal and symmetrical bilaterally; Good air movement bilaterally Heart: IRRR; Nl S1 and S2 no mcrg Abdomen: NABS soft, non-tender, non-distended; no organomegaly; no obvious masses Extremities/Skin: trace LE edema; Skin warm to touch and well perfused; skin discoloration is absent; Peripheral Pulses diminished but palpable Neuro: sensation and motor function are grossly normal. Cranial Nerves are grossly intact Laboratory Tests: Lab Results Component Value Date WBC 7.8 09/09/2021 WBC 7.9 05/19/2021 WBC 9.7 11/04/2020 HGB 14.7 09/09/2021 HGB 14.2 05/19/2021 HGB 14.5 11/04/2020 MCV 95.1 09/09/2021 MCV 95.6 05/19/2021 MCV 97.4 11/04/2020 Lab Results Component Value Date NA 140 09/09/2021 NA 139 05/19/2021 NA 139 11/04/2020 K 3.9 09/09/2021 K 4.4 05/19/2021 K 4.1 11/04/2020 CL 104 09/09/2021 CL 106 05/19/2021 CL 105 11/04/2020 CO2 26.0 09/09/2021 CO2 25 05/19/2021 CO2 31 11/04/2020 BUN 9 09/09/2021 BUN 10 05/19/2021 BUN 17 11/04/2020 CREATININE 0.68 09/09/2021 CREATININE 0.69 05/19/2021 CREATININE 0.77 11/04/2020 Lab Results Component Value Date TSH 1.255 05/19/2021 Lab Results Component Value Date CHOL 136 08/28/2019 Lab Results Component Value Date HDL 52 08/28/2019 Lab Results Component Value Date TRIG 49 08/28/2019 Radiology: Reviewed Katarina Cox MD DATE of SERVICE: 05/10/2023 documented in this encounter [facility] 12-02-2022 Note Medical Clearance re ceived from [facility] for R total hip on 12/28/2022 [facility] 11-02-2022 Note Addendum Dec 02 3: Pre-Operative Cardiac Evaluation I was asked to provide a pre-operative cardiac evaluation for Mr Cardona who is undergoing a right total hip arthroplasty. The patient denies cardiac symptoms. The patient is active and can undergo this moderate risk procedure at a low perioperative cardiac risk. No cardiac testing or changes in medications are needed prior to the procedure. The oral anticoagulation can be stopped 3 days prior to the procedure, and resumed as soon as possible from a surgical standpoint. See my note below for a detailed cardiac history and the current medications. Katarina Cox MD [facility] [place] Cardiology/Electrophysiology Follow Up Clinic Note Chief Complaint: Chief Complaint Patient presents with Coronary Artery Disease Atrial Fibrillation Persistent Cardiomyopathy Ischemic Nicotine Dependence Pre-op Exam Enoc Inguinal Hernias Rt Hip surgery History of Present Illness: Marcelino Cardona is a 72 y.o. male referred by Dr. Lara in Aug 2018 for follow-up of his CAD. [facility], he had an IWMI complicated by a VF arrest. A cath showed a distal RCA lesion that was stented. The prox RCA and the left main had 20% stenoses and the LAD and Circ were free of disease. In Jul 2015, prior to leaving [place], he had an echo and a nuclear stress test that by his report were both normal. In Apr 2020 he had a lot of PACs and PVCs on his ECG and c/o some fatigue. An echo showed an LVEF in the 30-40% range (officially read as 35%, 40% or so by my estimate). In May 2020 I started him on GDMT. In November 2020 he felt more dizzy, more fatigued and more dyspneic after starting the small doses of beta-lindsey and MADI inhibitor. He demanded that we stop them, despite my advice against it, and see how he felt without them. When I saw him in May 2021 he was feeling more fatigued, short of breath, and more dyspneic with exertion. An ECG showed atrial fibrillation with RVR in the 90s. I started him on Toprol Lasix and Xarelto. He would not let me restart the MADI inhibitor. He was also diagnosed with melanoma limited to the skin. He has declined chemo or skin abrasion. He had a normal bone marrow biopsy with Dr. Celis. He returns today feeling well from a CV standpoint. He denies CP, palpitation, SOB, PND, orthopnea, dizziness, or syncope. He does not exercise routinely mostly on account of his DJD, and he is considering hip surgery. He has not been taking his BP at home much. He was diagnosed with achalasia. An ECG today shows atrial fibrillation with a VR in the low 60s and frequent PVCs. The echo in Apr 2020 showed an LVEF of 35% (more like 40% by my review) and a severely dilated LA. Assessment and Plan: 1. Persistent atrial fibrillation: Probably started sometime in May 2021. He feels at baseline after starting metoprolol and Lasix. We had spoken about cardioversion, but he is now asymptomatic and reluctant to procedure/taking meds. He is willing to continue with Xarelto 20 mg daily and a beta-lindsey. He declined restarting an MADI or other meds as he felt dizzy with low BPs. 2. Ischemic Cardiomyopathy: His LV function is definitely not normal. Likely related to his CA. He has no symptoms of CAD or HF. The atrial fibrillation made him decompensate some. I had tried to convince him to stay on the small doses of metoprolol and lisinopril in the past, but he was adamant about stopping them as he felt more dizzy and more fatigued on the drugs. He should get a repeat echo or an MRI in the future, but he is reluctant to doing that. We also spoke about an ICD for SCD prophylaxis and he declined. 3. Frequent atrial and ventricular ectopy: He is asymptomatic. 4. CAD. Silent. Doing well from this standpoint. Continue with current meds. Cholesterol well controlled. 5. Current smoker. He was advised to stop, even the cigars. Given his CAD I explained the importance. I asked him in the past to be screened for AAA but he did not want to incur the cost. 6. Left Carotid Bruit. Following this for now as he is averse to testing 7. Melanoma: Apparently limited to the skin. He declined chemo or skin abrasion therapy. Past Medical History: Past Medical History: Diagnosis Date CAD (coronary artery disease) 01/07/2009 Inferior CA BMS to RCA Cardiomyopathy (HCC) 08/13/2015 NST EF 48% Heart attack (CMS/HCC) (HCC) Hyperlipidemia Lupus (systemic lupus erythematosus) (CMS/HCC) (HCC) 05/2020 Obesity Ventricular fibrillation (CMS/HCC) (HCC) Past Surgical History Past Surgical History: Procedure Laterality Date CARDIAC PROCEDURE 01/07/2009 CORONARY ANGIOPLASTY 01/07/2009 BMS to RCA CORONARY ANGIOPLASTY WITH STENT PLACEMENT 2008 SPINE SURGERY 1995 Family History Family History Problem Relation Name Age of Onset Hyperlipidemia Father Obesity Mother Diabetes Mother Heart disea (more content not included)... [facility] 11-02-2022 History of Presen t illness Narrative [facility] [place] Cardiology/Electrophysiology Follow Up Clinic Note Chief Complaint: Chief Complaint Patient presents with Coronary Artery Disease Atrial Fibrillation Persistent Cardiomyopathy Ischemic Nicotine Dependence Pre-op Exam Enoc Inguinal Hernias Rt Hip surgery History of Present Illness: Marcelino Cardona is a 72 y.o. male referred by Dr. Lara in Aug 2018 for follow-up of his CAD. [facility] In 2008, he had an IWMI complicated by a VF arrest. A cath showed a distal RCA lesion that was stented. The prox RCA and the left main had 20% stenoses and the LAD and Circ were free of disease. In Jul 2015, prior to leaving [place], he had an echo and a nuclear stress test that by his report were both normal. In Apr 2020 he had a lot of PACs and PVCs on his ECG and c/o some fatigue. An echo showed an LVEF in the 30-40% range (officially read as 35%, 40% or so by my estimate). In May 2020 I started him on GDMT. In November 2020 he felt more dizzy, more fatigued and more dyspneic after starting the small doses of beta-lindsey and MADI inhibitor. He demanded that we stop them, despite my advice against it, and see how he felt without them. When I saw him in May 2021 he was feeling more fatigued, short of breath, and more dyspneic with exertion. An ECG showed atrial fibrillation with RVR in the 90s. I started him on Toprol Lasix and Xarelto. He would not let me restart the MADI inhibitor. He was also diagnosed with melanoma limited to the skin. He has declined chemo or skin abrasion. He had a normal bone marrow biopsy with Dr. Celis. He returns today feeling well from a CV standpoint. He denies CP, palpitation, SOB, PND, orthopnea, dizziness, or syncope. He does not exercise routinely mostly on account of his DJD, and he is considering hip surgery. He has not been taking his BP at home much. He was diagnosed with achalasia. An ECG today shows atrial fibrillation with a VR in the low 60s and frequent PVCs. The echo in Apr 2020 showed an LVEF of 35% (more like 40% by my review) and a severely dilated LA. Assessment and Plan: 1. Persistent atrial fibrillation: Probably started sometime in May 2021. He feels at baseline after starting metoprolol and Lasix. We had spoken about cardioversion, but he is now asymptomatic and reluctant to procedure/taking meds. He is willing to continue with Xarelto 20 mg daily and a beta-lindsey. He declined restarting an MADI or other meds as he felt dizzy with low BPs. 2. Ischemic Cardiomyopathy: His LV function is definitely not normal. Likely related to his CA. He has no symptoms of CAD or HF. The atrial fibrillation made him decompensate some. I had tried to convince him to stay on the small doses of metoprolol and lisinopril in the past, but he was adamant about stopping them as he felt more dizzy and more fatigued on the drugs. He should get a repeat echo or an MRI in the future, but he is reluctant to doing that. We also spoke about an ICD for SCD prophylaxis and he declined. 3. Frequent atrial and ventricular ectopy: He is asymptomatic. 4. CAD. Silent. Doing well from this standpoint. Continue with current meds. Cholesterol well controlled. 5. Current smoker. He was advised to stop, even the cigars. Given his CAD I explained the importance. I asked him in the past to be screened for AAA but he did not want to incur the cost. 6. Left Carotid Bruit. Following this for now as he is averse to testing 7. Melanoma: Apparently limited to the skin. He declined chemo or skin abrasion therapy. Past Medical History: Past Medical History: Diagnosis Date CAD (coronary artery disease) 01/07/2009 Inferior CA BMS to RCA Cardiomyopathy (HCC) 08/13/2015 NST EF 48% Heart attack (CMS/HCC) (HCC) Hyperlipidemia Lupus (systemic lupus erythematosus) (CMS/HCC) (HCC) 05/2020 Obesity Ventricular fibrillation (CMS/HCC) ([facility]) Past Surgical History Past Surgical History: Procedure Laterality Date CARDIAC PROCEDURE 01/07/2009 CORONARY ANGIOPLASTY 01/07/2009 BMS to RCA CORONARY ANGIOPLASTY WITH STENT PLACEMENT 2008 SPINE SURGERY 1995 Family History Family History Problem Relation Name Age of Onset Hyperlipidemia Father Obesity Mother Diabetes Mother Heart disease Father High Blood Pressure Sister Kidney disease Sister Diabetes Sister High Blood Pressure Mother Asthma Brother Obesity Sister Social History Social History Tobacco Use Smoking status: Every Day Types: Cigars Start date: 2013 Passive exposure: Never Smokeless tobacco: Never Substance Use Topics Alcohol use: Yes Alcohol/week: 6.0 standard drinks Types: 6 Standard drinks or equivalent per week Comment: 2 cocktails/some days Drug use: No Comment: caffeine: 3 cups coffee/day Medications: Reviewed Allergies: Reviewed Review of Systems: All other systems were reviewed and are negative other than as noted in the HPI. Physical Examination: Vitals: Blood pressure 110/70, pulse 70, height 6' 2 (1.88 m), weight 218 lb (98.9 kg). Constitutional: Appears well kept and looks stated age; in NAD Psychiatric: A &O x3 Mood is pleasant; Affect is appropriate Musculoskeletal: Normocephalic; no joint swelling; gait steady ; 5/5 muscle strength bilaterally in upper and lower extremities; no clubbing or cyanosis HEENT: Pupils are equal and round; Conjunctiva are not injected; Sclera are non-icteric; Airway and Nares are patent; Ears without external abnormalities. Mucosa is pink; Dentition is normal Neck: Supple; No JVD: Left carotid Bruits; No thyromegaly; No lymphadenopathy Respiratory: Lungs are clear with no rales or wheezes. Respiratory effort is normal and symmetrical bilaterally; Good air movement bilaterally Heart: IRRR; Nl S1 and S2 no mcrg Abdomen: NABS soft, non-tender, non-distended; no organomegaly; no obvious masses Extremities/Skin: trace LE edema; Skin warm to touch and well perfused; skin discoloration is absent; Peripheral Pulses diminished but palpable Neuro: sensation and motor function are grossly normal. Cranial Nerves are grossly intact Laboratory Tests: Lab Results Component Value Date WBC 7.8 09/09/2021 WBC 7.9 05/19/2021 WBC 9.7 11/04/2020 HGB 14.7 09/09/2021 HGB 14.2 05/19/2021 HGB 14.5 11/04/2020 MCV 95.1 09/09/2021 MCV 95.6 05/19/2021 MCV 97.4 11/04/2020 Lab Results Component Value Date NA 140 09/09/2021 NA 139 05/19/2021 NA 139 11/04/2020 K 3.9 09/09/2021 K 4.4 05/19/2021 K 4.1 11/04/2020 CL 104 09/09/2021 CL 106 05/19/2021 CL 105 11/04/2020 CO2 26.0 09/09/2021 CO2 25 05/19/2021 CO2 31 11/04/2020 BUN 9 09/09/2021 BUN 10 05/19/2021 BUN 17 11/04/2020 CREATININE 0.68 09/09/2021 CREATININE 0.69 05/19/2021 CREATININE 0.77 11/04/2020 Lab Results Component Value Date TSH 1.255 05/19/2021 Lab Results Component Value Date CHOL 136 08/28/2019 Lab Results Component Value Date HDL 52 08/28/2019 Lab Results Component Value Date TRIG 49 08/28/2019 Radiology: Reviewed Katarina Cox MD DATE of SERVICE: 11/02/2022 documented in this encounter [facility] 11-02-2022 History of Presen t illness Narrative Addendum Dec 02 2022: Pre-Operative Cardiac Evaluation I was asked to provide a pre-operative cardiac evaluation for Mr Cardona who is undergoing a right total hip arthroplasty. The patient denies cardiac symptoms. The patient is active and can undergo this moderate risk procedure at a low perioperative cardiac risk. No cardiac testing or changes in medications are needed prior to the procedure. The oral anticoagulation can be stopped 3 days prior to the procedure, and resumed as soon as possible from a surgical standpoint. See my note below for a detailed cardiac history and the current medications. Katarina Cox MD [facility] [place] Cardiology/Electrophysiology Follow Up Clinic Note Chief Complaint: Chief Complaint Patient presents with Coronary Artery Disease Atrial Fibrillation Persistent Cardiomyopathy Ischemic Nicotine Dependence Pre-op Exam Enoc Inguinal Hernias Rt Hip surgery History of Present Illness: Marcelino Cardona is a 72 y.o. male referred by Dr. Lara in Aug 2018 for follow-up of his CAD. [facility] In [facility], he had an IWMI complicated by a VF arrest. A cath showed a distal RCA lesion that was stented. The prox RCA and the left main had 20% stenoses and the LAD and Circ were free of disease. In Jul 2015, prior to leaving [place], he had an echo and a nuclear stress test that by his report were both normal. In Apr 2020 he had a lot of PACs and PVCs on his ECG and c/o some fatigue. An echo showed an LVEF in the 30-40% range (officially read as 35%, 40% or so by my estimate). In May 2020 I started him on GDMT. In November 2020 he felt more dizzy, more fatigued and more dyspneic after starting the small doses of beta-lindsey and MADI inhibitor. He demanded that we stop them, despite my advice against it, and see how he felt without them. When I saw him in May 2021 he was feeling more fatigued, short of breath, and more dyspneic with exertion. An ECG showed atrial fibrillation with RVR in the 90s. I started him on Toprol Lasix and Xarelto. He would not let me restart the MADI inhibitor. He was also diagnosed with melanoma limited to the skin. He has declined chemo or skin abrasion. He had a normal bone marrow biopsy with Dr. Celis. He returns today feeling well from a CV standpoint. He denies CP, palpitation, SOB, PND, orthopnea, dizziness, or syncope. He does not exercise routinely mostly on account of his DJD, and he is considering hip surgery. He has not been taking his BP at home much. He was diagnosed with achalasia. An ECG today shows atrial fibrillation with a VR in the low 60s and frequent PVCs. The echo in Apr 2020 showed an LVEF of 35% (more like 40% by my review) and a severely dilated LA. Assessment and Plan: 1. Persistent atrial fibrillation: Probably started sometime in Apr/May 2021. He feels at baseline after starting metoprolol and Lasix. We had spoken about cardioversion, but he is now asymptomatic and reluctant to procedure/taking meds. He is willing to continue with Xarelto 20 mg daily and a beta-lindsey. He declined restarting an MADI or other meds as he felt dizzy with low BPs. 2. Ischemic Cardiomyopathy: His LV function is definitely not normal. Likely related to his CA. He has no symptoms of CAD or HF. The atrial fibrillation made him decompensate some. I had tried to convince him to stay on the small doses of metoprolol and lisinopril in the past, but he was adamant about stopping them as he felt more dizzy and more fatigued on the drugs. He should get a repeat echo or an MRI in the future, but he is reluctant to doing that. We also spoke about an ICD for SCD prophylaxis and he declined. 3. Frequent atrial and ventricular ectopy: He is asymptomatic. 4. CAD. Silent. Doing well from this standpoint. Continue with current meds. Cholesterol well controlled. 5. Current smoker. He was advised to stop, even the cigars. Given his CAD I explained the importance. I asked him in the past to be screened for AAA but he did not want to incur the cost. 6. Left Carotid Bruit. Following this for now as he is averse to testing 7. Melanoma: Apparently limited to the skin. He declined chemo or skin abrasion therapy. Past Medical History: Past Medical History: Diagnosis Date CAD (coronary artery disease) 01/07/2009 Inferior CA BMS to RCA Cardiomyopathy ([facility]) 08/13/2015 NST EF 48% Heart attack ([facility]) ([facility]) Hyperlipidemia Lupus (systemic lupus erythematosus) ([facility]) ([facility]) 05/2020 Obesity Ventricular fibrillation ([facility]) ([facility]) Past Surgical History Past Surgical History: Procedure Laterality Date CARDIAC PROCEDURE 01/07/2009 CORONARY ANGIOPLASTY 01/07/2009 BMS to RCA CORONARY ANGIOPLASTY WITH STENT PLACEMENT 2008 SPINE SURGERY 1995 Family History Family History Problem Relation Name Age of Onset Hyperlipidemia Father Obesity Mother Diabetes Mother Heart disease Father High Blood Pressure Sister Kidney disease Sister Diabetes Sister High Blood Pressure Mother Asthma Brother Obesity Sister Social History Social History Tobacco Use Smoking status: Every Day Types: Cigars Start date: 2013 Passive exposure: Never Smokeless tobacco: Never Substance Use Topics Alcohol use: Yes Alcohol/week: 6.0 standard drinks Types: 6 Standard drinks or equivalent per week Comment: 2 cocktails/some days Drug use: No Comment: caffeine: 3 cups coffee/day Medications: Reviewed Allergies: Reviewed Review of Systems: All other systems were reviewed and are negative other than as noted in the HPI. Physical Examination: Vitals: Blood pressure 110/70, pulse 70, height 6' 2 (1.88 m), weight 218 lb (98.9 kg). Constitutional: Appears well kept and looks stated age; in NAD Psychiatric: A &O x3 Mood is pleasant; Affect is appropriate Musculoskeletal: Normocephalic; no joint swelling; gait steady ; 5/5 muscle strength bilaterally in upper and lower extremities; no clubbing or cyanosis HEENT: Pupils are equal and round; Conjunctiva are not injected; Sclera are non-icteric; Airway and Nares are patent; Ears without external abnormalities. Mucosa is pink; Dentition is normal Neck: Supple; No JVD: Left carotid Bruits; No thyromegaly; No lymphadenopathy Respiratory: Lungs are clear with no rales or wheezes. Respiratory effort is normal and symmetrical bilaterally; Good air movement bilaterally Heart: IRRR; Nl S1 and S2 no mcrg Abdomen: NABS soft, non-tender, non-distended; no organomegaly; no obvious masses Extremities/Skin: trace LE edema; Skin warm to touch and well perfused; skin discoloration is absent; Peripheral Pulses diminished but palpable Neuro: sensation and motor function are grossly normal. Cranial Nerves are grossly intact Laboratory Tests: Lab Results Component Value Date WBC 7.8 09/09/2021 WBC 7.9 05/19/2021 WBC 9.7 11/04/2020 HGB 14.7 09/09/2021 HGB 14.2 05/19/2021 HGB 14.5 11/04/2020 MCV 95.1 09/09/2021 MCV 95.6 05/19/2021 MCV 97.4 11/04/2020 Lab Results Component Value Date NA 140 09/09/2021 NA 139 05/19/2021 NA 139 11/04/2020 K 3.9 09/09/2021 K 4.4 05/19/2021 K 4.1 11/04/2020 CL 104 09/09/2021 CL 106 05/19/2021 CL 105 11/04/2020 CO2 26.0 09/09/2021 CO2 25 05/19/2021 CO2 31 11/04/2020 BUN 9 09/09/2021 BUN 10 05/19/2021 BUN 17 11/04/2020 CREATININE 0.68 09/09/2021 CREATININE 0.69 05/19/2021 CREATININE 0.77 11/04/2020 Lab Results Component Value Date TSH 1.255 05/19/2021 Lab Results Component Value Date CHOL 136 08/28/2019 Lab Results Component Value Date HDL 52 08/28/2019 Lab Results Component Value Date TRIG 49 08/28/2019 Radiology: Reviewed Katarina Cox MD DATE of SERVICE: 11/02/2022 documented in this encounter [facility] 02-19-2022 Note Clinic Note: Education Assessment: Learning BarriersNo barriers TaughtPatient Primary Language of PatientEnglish Primary Language of Ring LearnerEnglish Clinic Visit: Topic(s): Clinic VisitFollow-up plan MethodVerbal, Teach-Back, Handout EvaluationTeaches back, States general concept Nursing Note: Nursing NotePatient saw Dr. Celis today. Patient received results today. Patient decided not to do radiation therapy at this time. He will call if he changes his mind. Patient will return to clinic in 6 months with labs prior within or [facility]. Patient instructed on follow up plan and understanding voiced. Call back instructions reviewed. Vinnie JOHNSTON Electronic Signatures: Pearl Castaneda (RN) (Signed 19-Feb-2022 17:16) Authored: Education Assessment, Clinic Visit, Nursing Note Last Updated: 19-Feb-2022 17:16 by Pearl Castaneda (RN) [facility] 02-02-2022 Note ROBERT Education Entere d On: 02/02/2022 7:32 EDT Performed On: 02/02/2022 7:32 EDT by Tarah Hsieh RN General / Required Barriers to Learning : None evident TeachBack Methodology : TeachBack, Demonstration, Explanation Tarah Hsieh RN - 02/02/2022 7:32 EDT Education Nursing General Required GRID Advance Directives : Verbalizes understanding Call Light Use : Verbalizes understanding Discharge Plan : Verbalizes understanding Fall Risk : Verbalizes understanding Orientation to Unit/Room : Verbalizes understanding Pain Management : Verbalizes understanding Patient Rights : Verbalizes understanding Plan of Care : Verbalizes understanding Safety : Verbalizes understanding Tarah Hsieh RN - 02/02/2022 7:32 EDT [facility] 01-08-2022 Note Clinic Note: Education Assessment: Learning BarriersNo barriers TaughtPatient Primary Language of PatientEnglish Primary Language of Ring LearnerEnglish Clinic Visit: Topic(s): Clinic VisitFollow-up plan MethodVerbal, Teach-Back EvaluationTeaches back NotesReviewed plan of care with patient. Patient to follow up in 6 weeks. Patient to have a bone marrow biopsy at in about 3 weeks. Patient needs cleared by Cardiology first D/T Dony. Patient will also need a Pet/Ct first. . Patient verbalizes understanding with verbal teach back. Geri Altamirano MSN, RN, OCN Electronic Signatures: Geri Altamirano (RN) (Signed 08-Jan-2022 12:57) Authored: Education Assessment, Clinic Visit Last Updated: 08-Jan-2022 12:57 by Geri Altamirano (RN) [facility] 10-09-2021 Miscellaneous Notes I called patient ( 08/19/21) again today and reviewed esophageal manometry with patient. Patient states that currently he has no heartburn or pain and he declined the test. I did discuss achalasia briefly and shared with him that we do have options available to manage achalasia and if he is interested we would be happy to make him an appointment with our Foregut surgeon. Marcelino said he would keep my contact information and thanked me for the call. I called Dr. Rodriges's office ([phone]) and left a message on their voicemail that the patient declined testing for now. Larissa Hernández RN documented in this encounter [facility] documented in this encounter [facility] Work Phone: Evaluation note* Diagnosis Persistent atrial fibrillation (HCC)- Primary Atrial fibrillation Bruit of left carotid artery Coronary artery disease involving knik coronary artery of knik heart without angina pectoris Ischemic cardiomyopathy Other specified forms of chronic ischemic heart disease Cigarette nicotine dependence without complication Mixed hyperlipidemia Pre-op evaluation [facility] Diagnosis Persistent atrial fibrillation (HCC)- Primary Atrial fibrillation Ischemic cardiomyopathy Other specified forms of chronic ischemic heart disease Cigarette nicotine dependence without complication Mixed hyperlipidemia Coronary artery disease involving knik coronary artery of knik heart without angina pectoris Bruit of left carotid artery Malignant melanoma, unspecified site (HCC) Achalasia Achalasia and cardiospasm Ventricular ectopy Other premature beats Atrial ectopy Unspecified cardiac dysrhythmia [facility]* Diagnosis Mixed hyperlipidemia- Primary documented in this encounter [facility] Instructions Instruction Description Start Date CompletedPatient advised to follow-up with Primary Care Physician for BMI management. Advance Directives No Advanced Directives Records FoundDocuments on File Type Date Recorded Patient Allergy Specialist Expl anation ACP-Advance Directive ACP-Power of Driver Trainee Assessments There may be information available, but it has not been provided by the sender. Review of System There may be information available, but it has not been provided by the sender. Family History There may be information available, but it has not been provided by the sender.No Family History Records FoundNo Family History Records FoundNo Family History Records FoundNo Family History Records FoundNo Family History Records FoundNo Family History Records Found Summary Purpose Additional Source Comments (unrecognized sect ion and content) No Status Records FoundNo Status Records FoundNo Status Records FoundNo Status Records FoundNo Status Records FoundNo Status Records Found INFORMATION SOURCE (unrecogn ized section and content) DATE CREATED AUTHOR AUTHOR'S ORGANIZ ATION 05/20/2021 [facility] DATE CREATED AUTHOR AUTHOR'S ORGANIZ ATION 10/12/2021 [facility] DATE CREATED AUTHOR AUTHOR'S ORGANIZ ATION 02/24/2022 [facility] DATE CREATED AUTHOR AUTHOR'S ORGANIZ ATION 02/27/2022 [facility] DATE CREATED AUTHOR AUTHOR'S ORGANIZ ATION 06/25/2023 [facility] Care Teams (unrecognized sec tion and content) Lead Ramp Service Man Relationship Specialty Start Date End Date Salas Gonzalez) [facility] [address] [place] [address] PCP - General 04/27/02 Lead Ramp Service Man Relationship Specialty Start Date End Date Mitra Hernandez [address] [place] [address] PCP - General 04/08/20 Lead Ramp Service Man Relationship Specialty Start Date End Date Mitra Hernandez [address] [place] [address] PCP - General 04/08/20 Lead Ramp Service Man Relationship Specialty Start Date End Date Mitra Hernandez [address] [place] [address] PCP - General 04/08/20 Lead Ramp Service Man Relationship Specialty Start Date End Date Mitra Hernandez [address] [place] [address] PCP - General 04/08/20 Source Comments (unrecognize d section and content) In the event this informatio n is protected by the Federal Confidentiality of Alcohol and Drug Abuse Patient Records regulations: The Federal rules restrict any use of the information to criminally investigate or prosecute any alcohol or drug abuse patient.[facility] Reason for Visit (unrecogniz ed section and content) Reason Comments Coronary Artery Disease Atrial Fibrillation Persistent Cardiomyopathy Ischemic Nicotine Dependence Pre-op Exam Enoc Inguinal Hernias Rt Hip surgery Reason Comments Coronary Artery Disease Atrial Fibrillation Persistent Cardiomyopathy Ischemic Nicotine Dependence Reason Onset Date Comments Cardiac Clearance 06/06/2023 Reason Comments Med Refill FOR RECORDS PERTAINING TO PATIENTS WHO ARE OR HAVE BEEN ENROLLED IN A CHEMICAL DEPENDENCY/SUBSTANCEABUSE PROGRAM, SOME INFORMATION MAY BE OMITTED. This clinical summary was aggregated from multiple sources. Caution should be exercised in using it in the provision of clinical care. This summary normalizes information from multiple sources, and as a consequence, information in this document may materially change the coding, format and clinical context of patient data. In addition, data may be omitted in some cases. CLINICAL DECISIONS SHOULD BE BASED ON THE PRIMARY CLINICAL RECORDS. [facility]. provides no warranty or guarantee of the accuracy or completeness of information in this document.
== END | disposition home or self-care (01) ==
LOC: RAD 14:27
PROVIDERS: PCP Nurse Practitioner; Referring Provider Anesthesiology Pain Medicine; Visit Provider Anesthesiology Pain Medicine
DX: M51.16 Intervertebral disc disorders with radiculopathy, lumbar region (principal); M51.36 Other intervertebral disc degeneration, lumbar region
CPT/HCPCS: 72100

== ENCOUNTER 2023-09-08 09:40 | Day surgery (SDC) | payer MEDICARE, SELFPAY ==
[2023-08-27 10:50] LABS: Hematocrit 35.8 % (40-54); Hemoglobin 11.6 g/dL (13.0-16.5); Mean Corp Hgb Conc 32.4 g/dL (32-36); Mean Corpuscular Hgb 30.9 pg (27.0-32.0); Mean Corpuscular Volume 95.5 fL (80-94); Mean Platelet Vol. 9.5 fl (6.2-12.0); Platelet Count 264 K/mm3 (150-450); RBC Distribution Width CV 12.9 % (11.6-14.6); RBC Distribution Width SD 44.7 fl (35.1-43.9); Red Blood Count 3.75 M/mm3 (4.6-6.2); White Blood Count 8.6 K/mm3 (4.4-11.0)
[2023-08-27 11:15] LABS: Anion Gap 3 (5-15); BUN 10 mg/dL (7-18); BUN/Creat Ratio 13.2 RATIO (10-20); Calcium,Total 9.6 mg/dL (8.5-10.1); Chloride 106 mmol/L (98-107); Creatinine, Serum 0.76 mg/dL (0.70-1.30); EST Glomerular Filtration Rate 108 mL/min (>60); Est Glom Filt Rate - Afr Amer 131 mL/min (>60); Glucose 127 mg/dL (74-106); Potassium 4.6 mmol/L (3.5-5.1); Sodium Level 136 mmol/L (136-145)
[2023-09-08] VITALS (10 sets, daily range): BP systolic 117–150; BP diastolic 60–93; PULSE 84–130; RESP 16–18; TEMP 36.5–36.7; O2SAT 93–100; BMI 24.0
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
[2023-09-08] MEDS: Lactated Ringers 1,000 ML 15 ML IV ×3 (10:45→15:14)
[2023-09-08] MEDS: Cefazolin 2 GM in 0.9% Normal Saline (100mL Bag) 100 ML IV (11:01)
[2023-09-08] MEDS: Bupiv/Epi 0.25% 30 ML Vial (11:21)
--- NOTE | 2023-09-08 14:00 | PCM.OPRPT ---
Report of Operation Date of Procedure: 09/08/23 Pre-Operative Diagnosis: Bilateral inguinal hernias Post-Operative Diagnosis: Bilateral indirect inguinal hernias Surgery/Procedure Performed:: Robot-assisted bilateral inguinal hernia repair with mesh Description of Surgical Findings:: ? Externally reducible direct inguinal hernias bilaterally (left larger than right) ? Small cord lipoma and indirect space on the right Surgeon: Rylan Vázquez bristle machine operator: Caitlyn Kang Type of Anesthesia: General/Supplemental Anesthesiologist: Sincere Mansfield Specimen's removed: None Drains: None Estimated Blood Loss (mL): 10 Description of Procedure: After appropriate identification the preoperative holding area the patient was brought to the operating room where he was positioned supine on the operating table. Preoperative antibiotics were completed and the patient was administered a general anesthetic. Patient's abdomen was then prepped and draped in usual sterile fashion. Formal timeout followed to confirm patient and procedure. Procedure was begun with an optical entry facilitated by Veress insufflation at Guan's point. Once pneumoperitoneum reached a set point pressure of 12 mmHg the Veress needle was withdrawn and a optical trocar was introduced through the same site revealing no inadvertent injury to the viscera below from our needle insertion. Next, a left paramedian incision was made and a 8 mm robotic trocar was placed with laparoscopic visualization. A third port was placed a hand's breath right of this port. Patient was positioned Trendelenburg and I performed a local block of the ilioinguinal nerves bilaterally using 8 mL local anesthetic under laparoscopic visualization. The robot was docked in standard fashion. In this positioning I could visualize 2 large direct inguinal hernia defects. Robotically, a peritoneal flap was created on the right extending from the medial umbilical ligament to the level of the ASIS (external) and was bluntly dissected to expose the medial parietal compartment and lateral visceral compartments. Medially I could visualize the pubic tubercle and developed the space of Retzius while laterally I dissected down to the level of the psoas musculature in the visceral compartment. Back in the parietal compartment medially I identified the hernia sac entering the direct space and gradually teased this away from the overlying fascia until it was fully reduced. There was some significant scar tissue medially adjacent to the inferior epigastric vasculature so this required some tedious dissection and limited cautery effect. There was no evidence of an indirect hernia and I was able to clearly visualize the inverted V days by the splaying of the vas deferens medially and the spermatic vessels laterally. Just lateral to the spermatic vessels I did identify a small cord lipoma which I reduced and dissected off the spermatic cord. The peritoneal flap was inspected to ensure that cord was appropriately parietalized and there was no pulling of the cord structures or the viscera deeply over the psoas using the pull test. Then attention was turned to the patient's left side where there was evidence of an even larger direct inguinal hernia. The bowel within this hernia had been manually reduced prior to docking the robot. Once again a peritoneal flap was created on this side and dissection was carried down in similar fashion to Huang's ligament medially and laterally over the psoas at the same depth. Also once again I reduced patient's direct inguinal hernia sac with gentle traction and sweeping motions to keep the peritoneum intact. More laterally there were no signs of a indirect inguinal hernia defect. Again, I performed the pull test to ensure that there is no tenting of structures that may compromise the future mesh lie. Once satisfied, each direct defect was closed with a separate #1 STRATAFIX suture in a bidirectional fashion taking great care to avoid vascular injury to the inferior epigastric vessels as they were approached. Then 2 Bard 3D max, size large, mid weight meshes were placed into the abdomen along with suture. Each mesh was positioned within its respective preperitoneal pocket so that there was good medial and inferior overlap of the defects as well as the masses themselves, medially. The overlap of the meshes was tacked to the admuniculum of the linea alba just superior to the pubic tubercle and laterally in a partial-thickness bite of the abdominal wall using a 3-0 Vicryl suture. Each peritoneal flap was then closed with a running 3-0 V-Loc suture taking care to conceal the barbs of the suture beneath the peritoneum. With the formal portion of the operation complete the needles were sequentially removed from the peritoneal cavity and upon confirming a correct needle count, the pneumoperitoneum was evacuated before removing the trocars. The port sites were closed at the skin with running 4-0 Monocryl in a subcuticular fashion. Steri-Strips and OpSite's were used as dressings. Patient's testicles were confirmed within the scrotum. Patient was then awoken from anesthetic and transferred to PACU for ongoing recovery. Grafts/Implants Used: 3D max mid anatomic LOT [id number], ref [id number]/ LOT [id number], ref [id number] Complications None Admit VTE Documentation VTE Mechan Device Prophylaxis: SCD's Procedures Digestive 40xxx-49xxx: 42305 Lap ing hernia repair init (with modifier 50. )
--- NOTE | 2023-09-08 14:04 | EX.PCM.DISCH ---
Discharge Instructions Diet Discharge Diet: No restrictions Activity Discharge Activity: May Not Drive (While taking narcotic pain medication) and May Shower May shower in (days): 2 Ice area for (Minutes): 20 Lifting Restrictions: No lifting greater than 10 pounds for the next 5 weeks Dressing / Incision Call your doctor if your incision/area has: Continuous Slow Oozing, Increased Pain/ Swelling, Increased Redness, Foul Smelling Discharge and Swelling at the incision site Call your doctor if you observe: Fever of 101 or Higher, Inability to urinate and Inability to have a bowel movement Change Dressing in: 2 days (Please leave Steri-Strips intact until they fall off spontaneously or are taken off at your follow-up visit) Remove Dressing in: 2 days Cleanse incision/area with: Soap & Water and Keep Dressing Clean & Dry Follow Up Care Please Follow Up With: Rylan Vázquez MD When: 10-14 days postop Test Results: Test results from this visit will be discussed in further detail at your follow-up appointment, if applicable. Discharge Plan Admission Primary Reason for Your Visit: Inguinal hernia repair x 2 Attending Provider: Rylan Vázquez Primary Care Provider: Hue Rodriguez DIRECTOR [employer] Discharge Orders/Prescriptions Prescriptions: New oxycodone 5 mg tablet 5 mg PO Q6H PRN (Reason: pain) 5 Days Qty: 14 0RF Continued acetaminophen [Tylenol 8 Hour] 650 mg tablet extended release 650 mg PO Q12H PRN (Reason: pain) hydrocodone-acetaminophen 5-325 mg tablet 1 tab PO BID PRN (Reason: pain) Patient Comments: TAKE 1 TABLET BY MOUTH TWICE DAILY FOR 7 DAYS furosemide 40 mg tablet 40 mg PO DAILY metoprolol succinate 50 mg tablet extended release 24 hr 50 mg PO DAILY pravastatin 20 mg tablet 20 mg PO DAILY rivaroxaban 20 mg tablet 20 mg PO DAILY Rx Instructions: must administer with evening meal clobetasol 0.05 % cream 1 applic TOPICAL BID Qty: 45 12RF tizanidine 4 mg tablet 4 mg PO TID Patient Comments: TAKE 1 TABLET BY MOUTH 3 TIMES DAILY Centrum Silver Men [phone] mcg tablet 1 tab PO DAILY docusate sodium [Colace] 100 mg capsule 100 mg PO DAILY aspirin 81 mg capsule 81 mg PO DAILY tramadol 50 mg tablet 50 mg PO Q8H PRN (Reason: pain) Patient Comments: TAKE 1 TABLET BY MOUTH 2CTIMES A DAY Referrals / Follow Up: Hue Rodriguez DIRECTOR [employer], DIRECTOR [employer]-C [Primary Care Provider] - Disposition Disposition (needs filled in before D/C Order can be placed): Home, Self Care
[2023-09-08] MEDS: oxyCODONE 5 MG Tablet PO (16:16)
== END 2023-09-08 18:07 | disposition home or self-care (01) ==
LOC: SDC 09:41 → AC 09:48
PROVIDERS: Anesthesiology; PCP Nurse Practitioner; Referring Provider Surgery; Visit Provider Surgery
PROC: (CPT 49650; principal; 2023-09-08 11:05)
DX: K40.20 Bilateral inguinal hernia, without obstruction or gangrene, not specified as recurrent (principal); I48.91 Unspecified atrial fibrillation; D17.6 Benign lipomatous neoplasm of spermatic cord; I25.10 Atherosclerotic heart disease of native coronary artery without angina pectoris; I25.2 Old myocardial infarction; I10 Essential (primary) hypertension; E78.00 Pure hypercholesterolemia, unspecified; F17.290 Nicotine dependence, other tobacco product, uncomplicated; Z95.5 Presence of coronary angioplasty implant and graft; Z79.01 Long term (current) use of anticoagulants; Z79.899 Other long term (current) drug therapy
CPT/HCPCS: 49650; S2900; 00840; 36415; 80048; 85027; 87081; J7120; J2405

== ENCOUNTER → 2023-12-06 | Outpatient (CLI) | payer MEDICARE, SELFPAY ==
[2023-12-06 19:12] LABS: Amphetamine Urine VISTA NEGATIVE (<1000 ng/mL); Barbiturate Urine VISTA NEGATIVE (< 200 ng/mL); Benzodiazepine Urine VISTA NEGATIVE (< 200 ng/mL); Cocaine Urine VISTA NEGATIVE (< 300 ng/mL); Ecstacy Urine VISTA NEGATIVE (< 500 ng/mL); Methadone Urine VISTA NEGATIVE (< 300 ng/mL); PCP Urine VISTA NEGATIVE (< 25 ng/mL); THC Urine VISTA POSITIVE (< 50 ng/mL); Vista UDS pH Range 6
== END | disposition home or self-care (01) ==
PROVIDERS: PCP Nurse Practitioner; Referring Provider Anesthesiology Pain Medicine; Visit Provider Anesthesiology Pain Medicine
DX: F11.20 Opioid dependence, uncomplicated (principal)
CPT/HCPCS: 80307

== ENCOUNTER → 2024-02-23 | Outpatient (CLI) | payer MEDICARE, SELFPAY ==
--- NOTE | 2024-02-23 08:28 | CT_ITS ---
CT BILATERAL LOWER EXTREMITY WITH 3-D IMAGING CLINICAL INDICATION: Templating for right AIME. TECHNIQUE: Axial CT images of the bilateral hips and knees was performed without IV contrast material. Coronal and sagittal reformats were provided. The protocol utilizes one or more of the following dose reduction techniques: automated exposure control, adjustment of mA and/or kV according to patient size, and/or use of iterative reconstruction technique. RADIATION DOSAGE (If Supplied By Facility): CTDIvol = ( 13.29 ) mGy, DLP = ( 950.91 ) mGycm COMPARISON: Pelvis and right hip radiographs dated 09/16/2022 FINDINGS: Bones: There is severe degenerative arthrosis of the right hip joint with [id number], marginal osteophyte formation, and subchondral sclerosis/cyst formation. There is moderate degenerative arthrosis of the left hip joint with moderate joint space narrowing and marginal osteophyte formation. There is degenerative disc disease in the visualized lumbosacral spine. There is mild tricompartment degenerative arthrosis of the knee joints bilaterally. Osseous structures are intact without evidence of fracture or dislocation. No lytic or blastic osseous masses. Soft Tissues: There is chondrocalcinosis of the medial and lateral menisci bilaterally. There are tiny knee joint effusions bilaterally. The deep soft tissue structures are unremarkable. The superficial soft tissues are unremarkable without evidence of edema, hematoma, or foreign body. CT/Extremity Lower without Contra IMPRESSION: Severe degenerative arthrosis of the right hip joint and moderate degenerative arthrosis of the left hip joint. Mild tricompartment degenerative arthrosis of the knee joints bilaterally. Tiny knee joint effusions bilaterally. Electronically Signed: Alex Wade MD at 9:28 EDT ,
== END | disposition home or self-care (01) ==
LOC: CT 08:27
PROVIDERS: PCP Nurse Practitioner; Referring Provider Orthopaedic Surgery; Visit Provider Orthopaedic Surgery
DX: M16.11 Unilateral primary osteoarthritis, right hip (principal)
CPT/HCPCS: 73700

== ENCOUNTER 2024-03-13 10:30 | Inpatient (IN) | payer MEDICARE, SELFPAY ==
--- NOTE | 2024-02-23 08:31 | EKG12_ITS ---
Test Reason : PRE OP Blood Pressure : / mmHG Vent. Rate : 059 BPM Atrial Rate : 277 BPM P-R Int : 000 ms QRS Dur : 098 ms QT Int : 438 ms P-R-T Axes : 000 003 -13 degrees QTc Int : 433 ms Atrial fibrillation with premature ventricular or aberrantly conducted complexes Abnormal ECG Confirmed by FAITH JACOBS, VALERIE ([id number]), news copy editor KEVIN KELLY ([id number]) on 02/24/2024 6:52:50 AM Referred By: GEO ACUÑA Confirmed By:JORDAN CUEVAS MD
--- NOTE | 2024-02-23 08:56 | EKG12_ITS ---
Test Reason : PRE OP Blood Pressure : / mmHG Vent. Rate : 049 BPM Atrial Rate : 049 BPM P-R Int : 156 ms QRS Dur : 076 ms QT Int : 436 ms P-R-T Axes : 030 036 009 degrees QTc Int : 393 ms Sinus bradycardia Otherwise normal ECG Confirmed by Rylan Lovett ([id number]), movie editor ARTHUR SÁNCHEZ ([id number]) on 02/28/2024 8:39:16 AM Referred By: NICK MENDEZ Confirmed By:Rylan Lovett
[2024-02-23 09:15] LABS: Absolute Lymphocyte Count 1.37 X10^3/uL (0.83-4.51); Absolute Neutrophil Count 3.9 X10^3/uL (2.0-7.7); Basophil# 0.05 X10^3/uL; Basophil% 0.8 % (0-1); Eosinophil# 0.37 X10^3/uL; Eosinophils% 5.9 % (0-5); Hematocrit 41.3 % (40-54); Hemoglobin 13.1 g/dL (13.0-16.5); Lymphocyte # 1.37 X10^3/ul (0.83-4.51); Lymphocyte % 21.7 % (19-41); Mean Corp Hgb Conc 31.7 g/dL (32-36); Mean Corpuscular Hgb 30.6 pg (27.0-32.0); Mean Corpuscular Volume 96.5 fL (80-94); Mean Platelet Vol. 10.1 fl (6.2-12.0); Monocyte# 0.65 X10^3/uL; Monocyte% 10.3 % (0-10); NRBC Flagged by Analyzer 0 % (0-5); Neutrophil # 3.87 X10^3/uL (2.7-7.7); Neutrophil % 61.1 % (47-70); Platelet Count 189 K/mm3 (150-450); RBC Distribution Width CV 14.1 % (11.6-14.6); RBC Distribution Width SD 49.9 fl (35.1-43.9); Red Blood Count 4.28 M/mm3 (4.6-6.2); White Blood Count 6.3 K/mm3 (4.4-11.0)
[2024-02-23 09:27] LABS: International Normalized Ratio 1.4; Partial Thromboplast Time 30.4 Seconds (24.1-36.2); Prothrombin Time (Protime)PT. 16.7 SECONDS (11.7-14.9)
[2024-02-23 09:36] LABS: Magnesium 2.2 mg/dL (1.6-2.6)
[2024-02-23 09:50] LABS: Hemoglobin A1c 5.6 % (3.8-5.6)
[2024-02-23 09:54] LABS: Anion Gap 4 (5-15); BUN 19 mg/dL (7-18); BUN/Creat Ratio 20.9 RATIO (10-20); Calcium,Total 9.3 mg/dL (8.5-10.1); Chloride 106 mmol/L (98-107); Creatinine, Serum 0.91 mg/dL (0.70-1.30); EST Glomerular Filtration Rate 87 mL/min (>60); Est Glom Filt Rate - Afr Amer 105 mL/min (>60); Glucose 115 mg/dL (74-106); Sodium Level 139 mmol/L (136-145)
[2024-03-04 22:06] LABS: Cotinine Screen Blood <1.0 ng/mL (.); Nicotine Blood <1.0 ng/mL (.)
[2024-03-13] VITALS (15 sets, daily range): BP systolic 112–134; BP diastolic 56–88; PULSE 49–79; RESP 13–18; TEMP 36.1–37.2; O2SAT 94–100; BMI 25.0
[2024-03-13] MEDS: Gabapentin 600 MG Tablet PO (06:16)
[2024-03-13] MEDS: Acetaminophen 500 MG Tablet 1000 MG PO ×3 (06:16→19:54)
[2024-03-13] MEDS: Celecoxib 200 MG Capsule 400 MG PO (06:16)
[2024-03-13] MEDS: Scopolamine 1mg/72hr Patch 1 PATCH TD (06:17)
[2024-03-13] MEDS: Lactated Ringers 1,000 ML 999 ML IV (06:45)
[2024-03-13] MEDS: Magnesium 1 GM over 15 mins IV (06:46)
--- NOTE | 2024-03-13 07:00 | PRE.ANES_ITS ---
ASA Classification* ASA Classification ASA Classification: 3 Assessment & Plan Anesthesia* Anesthesia Assessment Anesthesia Assessment: Discussed sedation and/or anesthesia options, risks, benefits, and alternatives with patient/parents/legal guardian/POA. Questions invited. The patient/parents/legal guardian/POA seems to understand and agrees to proceed with anesthesia plan. Reviewed the physical assessment, medical history, allergy history and patient home medications list prior to surgery/procedure/anesthetic and documented any changes. Performed airway and anesthesia risk assessments. Anesthesia Type Anesthesia Type: General (see written pre anesthesia record for full assessment) Anesthesia Focused Assessment* Temperature: 97.0 F Pulse Rate: 50 Blood Pressure: 124/80 Respiratory Rate: 16 Pulse Ox: 100 Airway Assessment Mouth opens: >3 cm Mallampati Score: II Focused Labs Anesthesia Preop lab: CBC WBC 6.3 K/mm3 (4.4-11.0) 02/23/24 08:57 RBC 4.28 M/mm3 (4.6-6.2) L 02/23/24 08:57 Hgb 13.1 g/dL (13.0-16.5) 02/23/24 08:57 Hct 41.3 % (40-54) 02/23/24 08:57 Plt Count 189 K/mm3 (150-450) 02/23/24 08:57 CHEMISTRY Potassium 5.0 mmol/L (3.5-5.1) 02/23/24 08:57 Sodium 139 mmol/L (136-145) 02/23/24 08:57 Magnesium 2.2 mg/dL (1.6-2.6) 02/23/24 08:57 BUN 19 mg/dL (7-18) H 02/23/24 08:57 Creatinine 0.91 mg/dL (0.70-1.30) 02/23/24 08:57 Glucose 115 mg/dL (74-106) H 02/23/24 08:57 POC Glucose 147 mg/dL (74-106) H 03/13/24 06:04 COAG PT 16.7 SECONDS (11.7-14.9) H 02/23/24 08:57 Pre-Assessment Diagnosis/Proposed Procedure Planned Operative Procedure(s): (R) ERAS Right Total Hip Replacement Robotic Arm Assisted Anesthesia History 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 When Was Last Pacemaker Check QUESTION #4 FULL TEXT: You/Your Family Experience fever (hyperthermia) with Anesthesia Last Oral Intake Last Oral intake: Last Oral Intake NPO since 03:30 03/13/24 06:41 Meds taken in AM with sips of Yes 03/13/24 06:41 water? Meds patient instructed to metoprolol 03/13/24 06:41 take am of surgery PONV PONV - assistant customer service manager: PONV - assistant customer service manager Female No 02/22/24 08:56 HX of Motion Sickness No 02/22/24 08:56 HX of N/V After Surgery No 02/22/24 08:56 Non-Smoker No 02/22/24 08:56 Duration of Surgery greater Yes 02/22/24 08:56 than 60 minutes Number of Risk Factors 1 02/22/24 08:56 PONV Score Low Risk 02/22/24 08:56 Height & Weight Height & Weight: Anesthesia: Height & Weight Height 6 ft 2 in 03/13/24 06:41 Weight: 88.4 kg 03/13/24 06:41 Body Mass Index (BMI) 25.0 03/13/24 06:41 Respiratory Assessment Respiratory Assessment - assistant customer service manager: Respiratory Tract Infection Hx - assistant customer service manager Hx Respiratory Tract Infection No 02/22/24 08:56 STOP Sleep Apnea STOP Sleep Apnea - assistant customer service manager: STOP Sleep Apnea - assistant customer service manager Hx Hypertension Yes: CONTROLLED WITH MEDS 02/22/24 08:56 Hx Sleep Apnea No 02/22/24 08:56 CPAP BIPAP Do you snore loudly (louder No 02/22/24 08:56 than talking or can be heard Do you often feel tired/ No 02/22/24 08:56 fatigued/ sleepy during daytime? Has anyone observed you stop No 02/22/24 08:56 breathing during sleep? STOP Results Negative 02/22/24 08:56 QUESTION #5 FULL TEXT : Do you snore loudly (louder than talking or can be heard through closed doors)? Tobacco Use History Tobacco Use History - assistant customer service manager: Tobacco Use History - assistant customer service manager Tobacco Use Smoking Status Former smoker 02/22/24 08:56 Hx Tobacco Use Yes 02/22/24 08:56 Years Smoking Packs Smoked per Day Smoking Cessation Date was Yes - quit smoking within 15 02/22/24 08:56 within the last 15 years years Hx Smoking Cessation Date 01/02/24 02/22/24 08:56 Hx Smoking Cessation Counseling Hematologic Medial History Hematologic Hx - assistant customer service manager: Hematologic Medical Hx - moisture meter reader Hx of Blood Transfusion No 02/22/24 08:56 Hx of Transfusion in last 3 No 02/22/24 08:56 Months Date of Last Transfusion (if within last 3 months) Ever experience any problems No 02/22/24 08:56 with transfusion(s)? Specify any problems Hx of Preganancy in last 3 N/A 02/22/24 08:56 Months Nurse Filling Out Transfusion NBUCHER 02/22/24 08:56 & Questions: Date: 02/22/24 02/22/24 08:56 Time: 09:00 02/22/24 08:56 Patient unable to answer at this time (ie. confused, unrespo /Reproduction History /Reproductive History - assistant customer service manager: /Reproductive Hx- assistant customer service manager Hx Now Gestational Age (in weeks): EDC: Hx Hx Para Hx Section SAB No 02/22/24 08:56 Active Medications Active Medications: Current Medications Generic Name Dose Route Start Last Admin Trade Name Freq PRN Reason Stop Dose Admin Lactated Ringer's 1,000 mls @ 100 mls/hr 03/13/24 07:30 IV 03/13/24 17:29 .Q10H GAURAV Lactated Ringer's 1,000 mls @ 125 mls/hr 03/13/24 07:30 IV 03/13/24 15:29 .Q8H GAURAV Insulin Human Lispro 1 - 6 unit 03/13/24 07:30 Insulin Lispro 100 Unit/Ml Insuln.Pen SC 03/13/24 13:30 Q4H PRN PRN BG>/= 180, SEE PROTOCOL Protocol PFSH Medical History Loss of hearing Wears glasses Cancer Ambulates with cane Arthritis Wears dentures Smoker Hypertension History of heart attack History of stress test History of echocardiogram Cardiology follow-up encounter History of atrial fibrillation Bilateral inguinal hernia without obstruction or gangrene Osteoarthritis of right hip Lumbar degenerative disc disease Radicular pain of right lower extremity Radiculopathy of leg Psoriasis Myeloma Atrial fibrillation and flutter Atrial fibrillation Dysphagia Feeling of foreign body in throat Psoriasis Tobacco dependence Ventricular fibrillation Obesity (BMI 30-39.9) Cardiomyopathy CAD (coronary artery disease) Skin sore Irregular cardiac rhythm Pain of left inguinal ring Pain of right inguinal ring Myocardial infarct High cholesterol Home Medications ?Medication ?Instructions ?Recorded ?Last Taken ?Type metoprolol succinate 50 mg 50 mg PO DAILY HTN 09/11/21 03/13/24 History tablet,extended release 24 hr pravastatin 20 mg tablet 20 mg PO DAILY HLD 09/11/21 03/12/24 History rivaroxaban 20 mg tablet 20 mg PO DAILY BLOOD THINNER 09/11/21 03/10/24 History acetaminophen 650 mg 650 mg PO Q12H PRN pain 10/06/22 03/12/24 History tablet,extended release (Tylenol 8 Hour) aspirin 81 mg capsule 81 mg PO DAILY HEART HEALTH 08/23/23 03/06/24 History oweyfzbh-bq-vthov 300 mcg-K 60 1 tab PO DAILY SUPPLEMENT 08/23/23 03/12/24 History mcg-lycop 600 mcg-lutein 300 mcg tablet (Centrum Silver Men) tramadol 50 mg tablet 50 mg PO BID PRN pain 11/02/23 03/12/24 History clobetasol 0.05 % topical cream 1 applic topical BID psoriasis 02/21/24 03/12/24 Rx elbows knees and hairline #45 grams Allergy/AdvReac Type Severity Reaction Status Date / Time ciprofloxacin Allergy Severe see Verified 02/22/24 08:54 comments Family History Father Myocardial infarction 60'2 Grandfather Myocardial infarction Mother Diabetes CVA (cerebral vascular accident) Hypertension Sister Diabetes Atrial fibrillation and flutter Kidney disease Uncle Atrial fibrillation and flutter Surgical History History of bilateral inguinal hernia repair S/P bilateral inguinal hernia repair, follow-up exam History of cardiac catheterization Hx of thumb surgery Hx of arthroscopy of left knee History of lumbar surgery Postsurgical percutaneous transluminal coronary angioplasty (PTCA) status diagnostic cardiac cath H/O heart artery stent Social History Smoking Status: Former smoker quit date: 03/04/12 Tobacco: How many years used: 12 Smokeless tobacco user: other alcohol intake: current alcohol intake frequency: a few times a week Review of Systems (Anesthesia) ROS Narrative System reviewed and no additional complaints, except as documented.
[2024-03-13 07:04] LABS: Bedside Glucose 147 mg/dL (74-106)
--- NOTE | 2024-03-13 07:19 | PCM.HP.BLA ---
History and Physical Date of Admission: 03/13/24 [facility] [address] [place] [address] OFFICE VISIT Date of Service: 11/02/23 MR#: [id number] Acct: [id number] Name: MARCELINO CARDONA Rep #: [id number] : 1950 Provider: Dr. Otilio Pérez DO Age/Sex: 73/M Location: [facility] [email or web address] Status: Signed Intake Vital Signs 09/07/2409:33 11/01/2414:03 Height 6 ft 2 in 6 ft 2 in Weight: 194 lb BMI 24.9 Intake Visit Reasons: RIGHT HIP Chief Complaint: Right hip pain Accompanied by: Self Is patient in pain?: Yes Pain scale (1-10): 3 Allergies ciprofloxacin Allergy (Severe, Verified 11/02/23 15:04) see comments Medications furosemide 40 mg tablet 40 mg PO DAILY 09/11/21 [History Confirmed 11/02/23] metoprolol succinate 50 mg tablet,extended release 24 hr 50 mg PO DAILY 09/11/21 [History Confirmed 11/02/23] pravastatin 20 mg tablet 20 mg PO DAILY 09/11/21 [History Confirmed 11/02/23] rivaroxaban 20 mg tablet 20 mg PO DAILY 09/11/21 [History Confirmed 11/02/23] clobetasol 0.05 % topical cream 1 applic topical BID psoriasis elbows knees and hairline #45 grams 05/24/22 [Rx Confirmed 11/02/23] acetaminophen 650 mg tablet,extended release (Tylenol 8 Hour) 650 mg PO Q12H PRN pain 10/06/22 [History Confirmed 11/02/23] aspirin 81 mg capsule 81 mg PO DAILY 08/23/23 [History Confirmed 11/02/23] anoeewqy-zq-iziah 300 mcg-K 60 mcg-lycop 600 mcg-lutein 300 mcg tablet (Centrum Silver Men) 1 tab PO DAILY 08/23/23 [History Confirmed 11/02/23] tramadol 50 mg tablet 50 mg PO BID PRN 11/02/23 [History Confirmed 11/02/23] [facility] Medical History Ambulates with cane Arthritis Atrial fibrillation Atrial fibrillation and flutter Bilateral inguinal hernia without obstruction or gangrene CAD (coronary artery disease) Cancer Cardiology follow-up encounter Cardiomyopathy Dysphagia Feeling of foreign body in throat High cholesterol History of atrial fibrillation History of echocardiogram History of heart attack History of stress test Hypertension Irregular cardiac rhythm Loss of hearing Lumbar degenerative disc disease Myeloma Myocardial infarct Obesity (BMI 30-39.9) Osteoarthritis of right hip Pain of left inguinal ring Pain of right inguinal ring Psoriasis Psoriasis Radicular pain of right lower extremity Radiculopathy of leg Skin sore Smoker Tobacco dependence Ventricular fibrillation Wears dentures Wears glasses Surgical History diagnostic cardiac cath H/O heart artery stent History of cardiac catheterization History of lumbar surgery Hx of arthroscopy of left knee Hx of thumb surgery Postsurgical percutaneous transluminal coronary angioplasty (PTCA) status S/P bilateral inguinal hernia repair, follow-up exam Family History Father Myocardial infarction 60'2Grandfather Myocardial infarctionMother Diabetes CVA (cerebral vascular accident) HypertensionSister Diabetes Atrial fibrillation and flutter Kidney diseaseUncle Atrial fibrillation and flutter Social History Smoking Status: Current every day smoker tobacco type: cigars per week: 21 Tobacco: How many years used: 12 Smokeless tobacco user: other alcohol intake: current alcohol intake frequency: a few times a week HPI RIGHT HIP Details: This documentation accurately reflects the service provided and the decisions made by me, Dr. Otilio Pérez, DO 11/02/23 0817. Part of today?s visit was documented by Coreen Small ATC, acting as scribe. MARCELINO CARDONA is a 73 year old M here today for right hip pain. Patient was last seen in here 10/29/2022 for the hip but it has not gotten any better for him. 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 He states some of the exercises help with his hip pain as well. Patient did have his bilateral inguinal hernias taken care of September 08, 2023. Patient states his doctor who did the hernias said he could not move forward with the total hip arthroplasty until after 6 months of the hernia surgery. Patient states he does see Dr. Riley for pain management and he does get injections with him for the hip pain and he states he has one scheduled for next Tuesday. He states he knows he is not able to move forward with the AIME until after 3 months of those injections. Patient states Dr. Riley prescribed him Tramadol for the pain and he also takes Tylenol as well to help with the pain and to help him sleep at night. He does smoke 3 cigars/day Ortho Exam General General: Yes no acute distress and Yes well groomed Neurologic: Yes alert and Yes oriented x3 Psychologic: Yes reasonable and appropriate Right Hip Skin: Yes CDI, No Ecchymosis, No soft tissue swelling and No Erythema Special Tests: No TTP Greater Troch and No TTP Greater sciatic notch Homans Sign: No HIP: lumbar surgical scar well healed no s/sx of injection dime size scar lateral hip from skin cancer removal non tender over SI joint 4/5 hip flexion, pain with resisted hip flexion pain in upper groin with 0 internal rotation Spine SPINE TESTING CERVICAL THORACIC LUMBAR Musculoskeletal Strength 0=absent - 5=normal Details: 2/ BL patellar reflex decreased BL Achilles reflexes Head: Normocephalic Atraumatic Chest: symmetrical rise, non-labored breathing, no audible wheeze Abdomen: no guarding, non-rigid Supplemental Info 06/16/2023 CT scan abdomen and pelvis bilateral moderate-sized inguinal hernias containing nondilated small bowel loops 10/16/2022 MRI lumbar spine: 1. Disc bulge at all levels with crowding of the traversing nerve root in the lateral recesses, including bilateral nerve root compression at L3-4. 2. Mild bilateral neural foraminal stenosis at L3-4, L4-5, L5-S1. 3. 9 mm L5-S1 retrolisthesis. 10/06/2022 x-ray left knee: There is patellofemoral arthrosis, mild spurring in the medial compartment and narrowing worse on notch view 06/30/2022 x-ray lumbar spine: Advanced L5-S1 degenerative disc disease multilevel endplate spurring lower lumbar facet arthrosis 09/16/2022 x-ray right hip there is advanced hip arthrosis joint space narrowing and spurring Coding Level of Care Code Off vis,est,level 3 Diagnoses Primary osteoarthritis of right hip M16.11 Osteoarthritis type: primary Assessment and Plan Assessment and Plan (1) Osteoarthritis of right hip: Status: Acute Qualifiers: Osteoarthritis type: primary Qualified Code(s): M16.11 - Unilateral primary osteoarthritis, right hip Orders: Referrals Physical Therapy Referral M16.11 - Unilateral primary osteoarthritis, right hip Plan Spoke to patient about moving forward with the right total hip arthroplasty. Due to the hernia surgery he would not be able to move forward with a total hip arthroplasty until March per his general surgeons recommendations. Explained there are no diet restrictions post surgery but there is a good idea to have good protein in his diet for good healing. Also spoke to him that high sugary diets increased risk of infection around the time of surgery. Risks, benefits and alternatives of surgery reviewed including but not limited to bleeding, infection, nerve, foot drop, artery and/or tissue damage, fracture, VTE, leg length discrepancy, dislocation, need for hip precautions, continued pain and expected post-operative course. He would have hip precautions following surgery for 3 months. Explained that recovery time is usually 2-3 months but it can take up to 2 years to fully recover. Explained he could see the physical therapist prior to surgery to do some prehabilitation to help prior to his surgery, which she is interested in. With him being on the blood thinner Xarelto as well as the aspirin he would need to stop the Xarelto about 4 days prior to surgery as well as the aspirin for 7 days prior to surgery. Explained we would need a medical clearance to get off of these medications, in addition to a cardiac clearance. Explained that smoking can cause risks of infections and since he is smoking cigars daily he would need to stop smoking 6 weeks prior and 6 weeks post surgery. Spoke to him that we will do a nicotine test prior to surgery. Due to patient living alone and on the second floor, explained that he would need to be admitted after surgery and he may need rehab or transitional care prior to returning home until he feels comfortable and safe to go home on his own. Explained he could not take a tub bath or get into a pool, hot tub or bob he should avoid this for 3 weeks after surgery. Gave patient a physical therapy referral for him to start prehabilitation prior to the surgery as well as gave him the soaps and drinks he would need for surgery. Tentative surgery date March 13, [address] for MAKOplasty Follow up in an as needed basis or sooner if pain, swelling, numbness or associated symptoms, or concerns develop. All questions answered. Patient in agreement of plan. 11/02/23 1557 <Electronically signed by Otilio Pérez DO> Date Otilio Pérez DO Cosigner Signature: Date (if applicable) I have examined the patient and the H&P has been reviewed. There are no clinical changes since date of exam.
--- NOTE | 2024-03-13 07:30 | HIP_PTH ---
PATIENT: MARCELINO CARDONA LOC: MS3 U#:[id number] AGE/SX: 73/M ROOM: [facility] [place] RE03/13/[address]: Dr. Otilio Pérez DO : 1950 BED: 1 DIS: 03/14/2024 SPEC #: [id number] RECD: 03/13/24 10:49 STATUS: VIRGIL ELYSIA #: [id number] ION: 03/13/24 07:[address]: Otilio Pérez DEPT: SURGICAL PATHOLOGY RECD BY: Radha Huggins ENTERED: 03/13/24 11:46 SP TYPE: TOTAL HIP OTHR DR: Hue Rodriguez, PEDIATRIC RN-C Tissues: Hip, NOS Procedures: Decalcification bone/plaque Surgery Specimen Level IV HEADER OPERATION: Right total hip replacement robotic arm assisted PRE-OP DIAGNOSIS: Osteoarthritis of right hip TISSUE SUBMITTED: Right hip bone and tissue MICROSCOPIC DIAGNOSIS Bone and tissue of right hip, total hip resection: Severe degenerative joint disease. Soft tissue with polarized crystals consistent with pseudogout. AM: 03/16/2024 MICROSCOPIC DESCRIPTION Slides are reviewed. GROSS DESCRIPTION Received is one container labeled with the patient's name and designated bone and soft tissue right hip. The specimen consists of a guillermo femoral head (with portion of femoral neck). The femoral head measures 5.5 x 5.5 x 4.5 cm (and the femoral neck measures 1.2 cm in length.) The articular surface displays prominent osteophyte formation, eburnation and bone erosion. Also present in the specimen container are multiple irregular fragments of bone reamings and pink-yellow soft tissue measuring in aggregate 10.0 x 8.0 x 2.5 cm. Fur Vault Attendant sections are submitted in two cassettes as follows: 1 - soft tissue, 2 - bone after decalcification. / [email or web address].mr 03/13/2024 TC:5 CPT: 49923, 57146
[2024-03-13] MEDS: Lactated Ringers 1,000 ML 100 ML IV (07:46)
[2024-03-13] MEDS: Cefazolin 2 GM in 0.9% Normal Saline (100mL Bag) 100 ML IV ×3 (07:47→19:52)
[2024-03-13] MEDS: TRANEXAMIC ACID 2,000 MG in 0.9% Normal Saline (100mL Bag) 100 ML 660 MG IV (08:03)
[2024-03-13] MEDS: dexAMETHasone 10 MG/ML Vial IV (08:15)
--- NOTE | 2024-03-13 10:35 | PCM.OP.BLANK ---
Operative Report Date of Procedure: 03/13/24 Preoperative diagnosis: Right hip DJD Postoperative diagnosis: Same Procedure: CT-guided Makoplasty assisted right total hip arthroplasty Implants: Leidy Accolade II stem size 6, 127 degree neck angle +2.5 head neck length 60 mm Trident II acetabular shell with 40 mm cancellous screw 36 mm ceramic head, 10 degree Trident X3 polyethylene insert. Anesthesia: General EBL: 175 cc Complications: None Condition: Stable to PACU Rubber Production Machine Operator Johnnie Infante. My physician therapy assistant was a vital part of this case. He was important in appropriate retraction during the case, and protection of soft tissues during procedure. His intimate knowledge of the case and my steps aided in safe and expedient completion of the procedure as well as appropriate position of the extremity during the case. He was also vital in assisting with closure under my direct supervision. Indication for procedure: This is a 73-year-old male who has had long-standing arthrosis of the hip who has failed conservative treatment and wished to undergo total hip arthroplasty. We did discuss operative versus nonoperative intervention including risks of bleeding, infection , nerve artery tissue damage, need for further surgery, fracture, leg length discrepancy dislocation blood clot and need for postoperative physical therapy and postoperative expectations. An informed consent was signed. Procedure: Patient was met in the preoperative holding area once again the operative extremity was identified by both patient and physician and was marked. Patient was met by anesthesia . Anesthesia was started. patient was then positioned in the lateral decubitus position on a well-padded pegboard with an axillary roll. All bony prominences were checked and padded. The patient was prepped and draped in the usual sterile fashion. A timeout was called to ensure the proper patient procedure and extremity were being contemplated. Anatomic landmarks were palpated and marked for a standard posterior lateral approach. Prior to this the ASIS was palpated and 3 fingerbreadths proximal to this 3 pins were placed at a 45 degree angle into the iliac crest with good purchase, stab incisions were made with a 15 blade into the skin prior to placement. The Makoplasty array was then secured. A 10 blade scalpel was used to make a posterior incision through the skin and subcutaneous tissue. retractors were used and electrocautery was used to maintain meticulous hemostasis and dissect full-thickness flaps until the gluteal fascia was reached. The gluteal fascia was incised in line with the gluteal fibers. The bursal tissue was then freed from the underside and a Charnley retractor was placed. The femoral trochanteric checkpoint was placed and leg length was assessed using the trochanteric checkpoint and an EKG lead that was placed on the knee prior to prepping the leg .the fat pad was then elevated off of the external rotators with electrocautery and the external rotators were dissected off of the greater trochanter including the piriformis and were tagged with #1 Ethibond for later repair. The joint capsule opened with posterior trapdoor technique. The hip was surgically dislocated. The measurement on the preoperative CT from the top of the lesser trochanter to the femoral neck cut was marked Hohmann was placed around the lesser trochanter. A neck cutting guide was used to [place] the neck with a Bovie and an oscillating saw was used complete the femoral neck cut. The femoral head was then removed and sized. We then turned our attention to the acetabulum. A Bovie was used to make a perforation in the anterior joint capsule and a Slaughter retractor was placed this was repeated in the 6 o'clock position and a wide vlad was placed there. With a long handled knife the labral and pulvinar tissue were removed. We then registered the acetabulum with the pointing array and confirmed our landmarks. Once the socket was thoroughly prepared and labral tissue and pulvinar was removed we single reamed with the robotic arm. We then used the robotic arm to position the acetabular implant and impacted it into place under robotic guidance. We then proceeded to place a posterior superior screw by drilling first measuring and inserting the screw. We then inserted a trial liner. And turned our attention back to the femur at this point a femoral elevator was used. As well as a pointed wide Hohmann around the lesser trochanter and a Hohmann to help retract the gluteus medius. A box chisel was used to remove excess lateral neck followed by a canal finder and a lateralizing reamer. This was followed by sequential broaches. Attention was made of the version within the canal based on preoperative templating. Once the final broach was seated we then trialed reduced the hip it was determined that a 127 degree neck angle with a +2.5 neck length was the appropriate size. We then checked stability with shuck testing as well as flexion and internal rotation. then proceeded with hip extension and checked leg lengths at the knees and heels as well as with the trochanteric checkpoint and knee EKG lead. At this point trials were removed. A liner was inserted to the cup. The femoral stem was inserted. We re-trialed and then proceeded to impact the femoral head onto the Pedro taper. We then surgically reduce the hip check stability again and leg lengths and were satisfied. Betadine rinse was allowed to sit for 5 minutes while everyone changed their gloves. Thorough irrigation was performed. Followed by closure of the external rotators with #2 FiberWire followed by closure of gluteal fascia with #1 Ethibond. 0 Vicryl fat stitches and 2-0 Vicryl subcutaneous stitches and devin in the skin. Devin were placed in the skin pin sites over the iliac crest and dressed with a Mepilex dressing. The main incision was dressed with a Mepilex ag dressing and an abduction pillow was placed. Patient tolerated the procedure well there was no intraoperative complications all counts were correct and the patient was brought back to the PACU in stable condition
--- NOTE | 2024-03-13 10:36 | PCM.POST.ANE ---
Anesthesia: Postop Eval I Current Vital Signs Temperature: 97 F Pulse Rate: 65 Blood Pressure: 120/66 Respiratory Rate: 16 Pulse Ox: 97 Oxygen Delivery Method: Nasal Cannula Oxygen Flow Rate (L/min): 4 Assessment Airway patent: Yes Spontaneous unlabored respirations: Yes Mental status: Awake and Calm nausea: No Vomiting: No Anesthesia Complication: No Fluid Hydration Crystalloid volume administer (ml): 1,500 Total IV fluid infused: 1,500 Progress Note Post-operative progress note: C&DB ENC'D Anesthesia document: Postop Eval 1 completed: Yes
--- NOTE | 2024-03-13 10:50 | RAD_ITS ---
STUDY: X-RAY - PELVIS AND RIGHT HIP REASON FOR EXAM: Male, 73 years old. Postop from right hip replacement surgery TECHNIQUE: 2 views of the pelvis and hip. COMPARISON: None. FINDINGS: Patient is postop from right hip replacement surgery. Components demonstrate anatomic alignment. Normal postoperative soft tissue swelling and subcutaneous emphysema. No postoperative complications. Age consistent left hip arthrosis without fracture or evidence of AVN RAD/Hip Min 2 Views (Portable) IMPRESSION: Replaced right hip joint demonstrates anatomic alignment, no plain film evidence of postoperative complication Electronically Signed: Troy Uriostegui MD at 11:13 EDT ,
[2024-03-13] MEDS: oxyCODONE 5 MG Tablet PO (12:19)
--- NOTE | 2024-03-13 12:19 | POSTOPAN2_ITS ---
Anesthesia Postop Eval I Sum Postop Eval Completion status Anesthesia document: Postop Eval 1 completed: Yes Anesthesia Postop Eval I Summary Anesthesia Postop Eval I Summary: Anesthesia Postop Eval I: Assessment Summary Airway patent Yes 03/13/24 10:37 CRUDE OIL [email or web address].[email or web address] Spontaneous unlabored Yes 03/13/24 10:37 CRUDE OIL TREATER.SCHR respirations Mental status Awake,Calm 03/13/24 10:37 CRUDE OIL TREATER.SCHR nausea No 03/13/24 10:37 CRUDE OIL TREATER.SCHR Vomiting No 03/13/24 10:37 [facility] O[facility] TREATER.[facility] Anesthesia Postop Eval I: Fluid Summary Crystalloid volume administer 1,500 03/13/24 10:37 CRUDE OIL TREATER.SCHR (ml) Colloids volume administered ( ml) Blood Product volume administered (ml) Total IV fluid infused 1,500 03/13/24 10:37 CRUDE OIL TREATER.[facility] Anesthesia Postop Eval I: Summary Notes Anesthesia Complication No 03/13/24 10:37 CRUDE OIL TREATER.[facility] Anesthesia Complication Comment: Post-operative progress note C&DB ENC'D 03/13/24 10:37 CRUDE OIL TREATER.[facility] Anesthesia: Postop Eval II Evaluation Mental status: Awake and Calm Pain Level: 1 nausea: No Vomiting: No Complications Anesthesia Complication: No
--- NOTE | 2024-03-13 12:19 | PCM.POSTANE2 ---
Anesthesia Postop Eval I Sum Postop Eval Completion status Anesthesia document: Postop Eval 1 completed: Yes Anesthesia Postop Eval I Summary Anesthesia Postop Eval I Summary: Anesthesia Postop Eval I: Assessment Summary Airway patent Yes 03/13/24 10:37 PETROLEUM TRANSPORT DRIVER.SCHR Spontaneous unlabored Yes 03/13/24 10:37 PETROLEUM TRANSPORT DRIVER.SCHR respirations Mental status Awake,Calm 03/13/24 10:37 PETROLEUM TRANSPORT DRIVER.SCHR nausea No 03/13/24 10:37 PETROLEUM TRANSPORT DRIVER.SCHR Vomiting No 03/13/24 10:37 [facility]LE[employer] [facility]SP[employer] [facility] Anesthesia Postop Eval I: Fluid Summary Crystalloid volume administer 1,500 03/13/24 10:37 PETROLEUM TRANSPORT DRIVER.SCHR (ml) Colloids volume administered ( ml) Blood Product volume administered (ml) Total IV fluid infused 1,500 03/13/24 10:37 PETROLEUM TRANSPORT DRIVER[facility] Anesthesia Postop Eval I: Summary Notes Anesthesia Complication No 03/13/24 10:37 [employer]ROLEUM TRANSPORT DRIVER[facility] Anesthesia Complication Comment: Post-operative progress note C&DB ENC'D 03/13/24 10:37 [employer]ROLEUM TRANSPORT DRIVER[facility] Anesthesia: Postop Eval II Evaluation Mental status: Awake and Calm Pain Level: 1 nausea: No Vomiting: No Complications Anesthesia Complication: No
[2024-03-13] MEDS: 0.9% Normal Saline (1000mL) 1,000 ML 125 ML IV (17:24)
[2024-03-13] MEDS: Senna/Docusate Sodium 1 Tablet 2 TABLET PO (19:53)
[2024-03-13] MEDS: Clobetasol Propionate 0.05% Cream 1 APPLIC TOPICAL (19:54)
[2024-03-14] VITALS (7 sets, daily range): BP systolic 104–138; BP diastolic 42–75; PULSE 55–73; RESP 16–18; TEMP 36.1–37.2; O2SAT 95–100
[2024-03-14] MEDS: oxyCODONE 5 MG Tablet PO ×3 (00:34→13:50)
[2024-03-14] MEDS: Cefazolin 2 GM in 0.9% Normal Saline (100mL Bag) 100 ML IV (02:05)
[2024-03-14] MEDS: Rivaroxaban 10 MG Tablet PO (06:01)
[2024-03-14] MEDS: Acetaminophen 500 MG Tablet 1000 MG PO ×2 (06:02→13:49)
[2024-03-14 06:57] LABS: Hematocrit 36.1 % (40-54); Hemoglobin 11.6 g/dL (13.0-16.5); Mean Corp Hgb Conc 32.1 g/dL (32-36); Mean Corpuscular Hgb 31.1 pg (27.0-32.0); Mean Corpuscular Volume 96.8 fL (80-94); Mean Platelet Vol. 10.5 fl (6.2-12.0); Platelet Count 155 K/mm3 (150-450); RBC Distribution Width CV 13.2 % (11.6-14.6); RBC Distribution Width SD 47.6 fl (35.1-43.9); Red Blood Count 3.73 M/mm3 (4.6-6.2); White Blood Count 12.7 K/mm3 (4.4-11.0)
[2024-03-14 08:09] LABS: Anion Gap 4 (5-15); BUN 18 mg/dL (7-18); BUN/Creat Ratio 26.5 RATIO (10-20); Calcium,Total 8.7 mg/dL (8.5-10.1); Chloride 105 mmol/L (98-107); Creatinine, Serum 0.68 mg/dL (0.70-1.30); EST Glomerular Filtration Rate 122 mL/min (>60); Est Glom Filt Rate - Afr Amer 148 mL/min (>60); Estimated Creatinine Clearance 97.04 ml/min; Glucose 134 mg/dL (74-106); Potassium 4.5 mmol/L (3.5-5.1); Sodium Level 136 mmol/L (136-145)
[2024-03-14] MEDS: Metoprolol(XL)Succ 50 MG Tablet PO (10:14)
[2024-03-14] MEDS: Clobetasol Propionate 0.05% Cream 1 APPLIC TOPICAL (10:14)
[2024-03-14] MEDS: Senna/Docusate Sodium 1 Tablet 2 TABLET PO (10:14)
--- NOTE | 2024-03-14 12:28 | PCM.PN.ORT ---
Subjective Subjective Seen and examined. Doing well. Pain controlled. Did very well with physical therapy. Denies any nausea vomiting shortness breath or chest pain or any other complaints. He does wish to go home. Objective Data Objective Data Vital Signs: Vital Signs Temp Pulse Resp BP Pulse Ox O2 Del Method O2 Flow Rate 99.0 F 73 16 110/59 L 100 Room Air 4 03/14/24 08:39 03/14/24 10:14 03/14/24 08:39 03/14/24 08:39 03/14/24 08:39 03/14/24 08:39 03/13/24 11:25 Oxygen Flow Rate (L/min) 4 Oxygen Delivery Method Room Air Weight: 194 lb 14.218 oz Body Mass Index (BMI) 25.0 Intake & Output: Intake and Output for Last 24 Hours 03/12/24 03/13/24 03/14/24 23:59 23:59 23:59 Intake Total 3660.33 / 3660.33 691.00 / 691.00 Output Total 550 / 550 Balance 3660.33 / 3660.33 141.00 / 141.00 Lab / Micro Data 03/14/24 06:04 03/14/24 06:04 Labs: Laboratory Results - last 24 hr 03/14/24 06:04: WBC 12.7 H, RBC 3.73 L, Hgb 11.6 L, Hct 36.1 L, MCV 96.8 H, MCH 31.1, MCHC 32.1, RDW Std Deviation 47.6 H, RDW Coeff of Mickey 13.2, Plt Count 155, MPV 10.5, Sodium 136, Potassium 4.5, Chloride 105, Carbon Dioxide 27.0, Anion Gap 4 L, BUN 18, Creatinine 0.68 L, Estim Creat Clear Calc 97.04, Est GFR (MDRD) Af Amer 148, Est GFR (MDRD) Non-Af 122, BUN/Creatinine Ratio 26.5 H, Glucose 134 H, Calcium 8.7 Micro: Microbiology 02/23/24 08:57 Swab (Method) Nasal Screen MRSA/MSSA - Final Physical Exam Const alert, oriented x3 and no apparent distress General Appearance: cooperative Extremity Extremity Narrative: Right hip dressing clean dry intact compartment soft neurovascular intact EHL tibialis anterior gastrocsoleus intact sensation to light touch 2 out of 4 pedal pulse Assessment & Plan Assessment/Plan (1) S/P total hip arthroplasty: QUALIFIERS: Laterality: right Qualified Code(s): Z96.641 - Presence of right artificial hip joint PLAN: Plan Postop day #1 right total hip arthroplasty PT OT weightbearing as tolerated hip precautions DVT prophylaxis SCDs IVONNE karishma Xarelto 20 mg daily per his preoperative dose DC home outpatient physical therapy Follow-up in the office 2 weeks
--- NOTE | 2024-03-14 12:30 | DCINST_ITS ---
Discharge Instructions Diet Discharge Diet: No restrictions Activity Weight Bearing Status: Full weight bearing Dressing / Incision Call your doctor if you observe: Shortness of breath and Chest pain Additional Dressing/Incision Instructions:: Do not shower 72hrs. Begin daily showering warm water antibacterial soap postop day #3( 72hrs Post-operatively) and then daily. Leave the dressing on for 72 hours postoperatively then may remove prior to first shower and change dressing daily after this until no drainage for 2 consecutive days then may leave open to air. Follow hip precautions that were reviewed in hospital. Wear compression stockings, may remove at night. Start physical therapy as directed in hospital. Follow prescriptions instructions do not take any other pain medication or differ dosing without consulting your physician. Do not take oral NSAIDs until blood thinner has been completed , then may begin the day after completion if needed . Call Dr. Pérez's office with any concerns. Follow Up Care Please Follow Up With: Otilio Pérez DO When: 2 weeks Test Results: Test results from this visit will be discussed in further detail at your follow- up appointment, if applicable. Discharge Plan Admission Admit Date/Time: 03/13/24 10:30 Primary Reason for Your Visit: Right total hip arthroplasty Attending Provider: Otilio Pérez Primary Care Provider: Hue Rodriguez NP Discharge Orders/Prescriptions Prescriptions: New oxycodone 5 mg tablet 5 - 10 mg PO Q6H PRN (Reason: pain) 7 Days Qty: 60 0RF acetaminophen 500 mg tablet 1,000 mg PO Q6H PRN (Reason: pain) Qty: 100 0RF Continued metoprolol succinate 50 mg tablet extended release 24 hr 50 mg PO DAILY rivaroxaban 20 mg tablet 20 mg PO DAILY Rx Instructions: must administer with evening meal clobetasol 0.05 % cream 1 applic TOPICAL BID Qty: 45 12RF Centrum Silver Men [id number] mcg tablet 1 tab PO DAILY Discontinued acetaminophen [Tylenol 8 Hour] 650 mg tablet extended release 650 mg PO Q12H PRN (Reason: pain) tramadol 50 mg tablet 50 mg PO BID PRN (Reason: pain) No Action pravastatin 20 mg tablet 20 mg PO DAILY aspirin 81 mg capsule 81 mg PO DAILY Other Ambulatory Orders: 12 Lead EKG (Routine) Timeframe: 20240223 Location: None Selected Ordered By: Dr. Otilio Borruso Type & Screen - PAT ONLY (Routine) Timeframe: 20240313 Facility: [facility] - Location: Laboratory Ordered By: Dr. Otilio Pérez Referrals / Follow Up: Hue Rodriguez NP, KNOWLEDGE MANAGEMENT ADVISOR-C [Primary Care Provider] -
--- NOTE | 2024-03-14 12:35 | CASEMGMT ---
Addendum entered by Ventura Mongtomery 03/14/24 14:08: Pt states # for [facility] in [place] is: [phone] Original Note: RN CARLOS ASSISTANT PROFESSOR SURGICAL TECHNOLOGY CARLOS?to room to meet with patient for initial transition planning/care coordination assessment. PRESTON GONZALEZ?introduced self and role at [facility]. Pt voices understanding and consents to assessment?at this time. Pt sitting up in chair in no distress at this time. Pt is A/O at this time and answers all questions appropriately. Care providers, pharmacy, and demographics verified/updated at this time. Strata:?1 PCP: Hue Rodriguez NP Specialists: Dr Pérez-ortho. Dr Riley-pain mgnt Preferred Pharmacy: [facility] retail @ [address]. Otherwise, [facility] in [place] Insurance: [facility] Prescription Benefit: yes Living Will/HPOA: Pt does not currently have LW/HCPOA. LNOK: 3 sons. One son's name is Francine Living Arrangements: Lives alone in 2nd-floor apt w/13 steps to enter. Independent prior to surgery. Pt prepped meals to have once he returns home. Neighbors can assist, if needed. Transportation:?Pt drives. Friend will take him home @ dc and states he has friends that can take him to OP therapy appts. DME: States has the following DME: RTS, cane, walker, sock-aid, traffic sign supervisor Pt states no need for further DME at this time. HHC/SNF: No hx of either. Pt wishes to return home and states has no concerns with going home at time. He states therapy has worked w/him today and he worked on the stairs and feels comfortable doing flight of stairs to his apt. He states he plans on going to [facility] in [place] for OP therapy. He states they already have the order for OP therapy there, but he has not scheduled any appts yet, stating he did not think he was supposed to start going until Dr Pérez's approves it. MS3 PRESTON GONZALEZ, Francesca, made aware and will look into this further. PLAN: Home w/OP therapy. Aguila PALMA RN, CM
--- NOTE | 2024-03-14 12:35 | DS.PCM_ITS ---
Providers Date of Admission: 03/13/24 Primary Care Physician: LISANDRA Hurt Reason For Visit: ERAS Right Total Hip Replacement Ro Diagnosis Discharge Diagnosis (1) S/P total hip arthroplasty: Status: Acute Code(s): Z96.649 - Presence of unspecified artificial hip joint Qualifiers: Laterality: right Qualified Code(s): Z96.641 - Presence of right artificial hip joint Plan Postop day #1 right total hip arthroplasty PT OT weightbearing as tolerated hip precautions DVT prophylaxis SCDs IVONNE schwarz Xarelto 20 mg daily per his preoperative dose DC home outpatient physical therapy Follow-up in the office 2 weeks Medications at Discharge Home Medications metoprolol succinate 50 mg tablet,extended release 24 hr 50 mg PO DAILY HTN 09/11/21 pravastatin 20 mg tablet 20 mg PO DAILY HLD 09/11/21 rivaroxaban 20 mg tablet 20 mg PO DAILY BLOOD THINNER 09/11/21 aspirin 81 mg capsule 81 mg PO DAILY HEART HEALTH 08/23/23 nomcsreb-nm-sulgh 300 mcg-K 60 mcg-lycop 600 mcg-lutein 300 mcg tablet (Centrum Silver Men) 1 tab PO DAILY SUPPLEMENT 08/23/23 clobetasol 0.05 % topical cream 1 applic topical BID psoriasis elbows knees and hairline #45 grams 02/21/24 acetaminophen 500 mg tablet 1,000 mg (2 x 500 mg) PO Q6H PRN pain #100 tabs 03/14/24 oxycodone 5 mg tablet 5 - 10 mg (1 - 2 x 5 mg) PO Q6H PRN pain 7 days #60 tabs 03/14/24 Hospital Course Operations total hip replacement Summary of Care Provided Hospital Course: Patient with long-standing history of severe right hip DJD who is failed conservative treatment. Patient underwent total hip arthroplasty day of admission. Patient did receive pre-and postoperative antibiotics which were discontinued within 23 hours postoperatively. pain was controlled with both IV and p.o. pain medication. Patient did receive 2 g of tranexamic acid. hemoglobin and hematocrit were monitored postoperatively as well as vital signs and the patient did not require any blood transfusion. Dressing will be changed daily beginning postop day #3 before shower will be removed and replaced after. Pt was started on Xarelto postop day #1 and he will resume his preoperative dose upon discharge . Patient was seen by physical therapy was ambulating the halls well. patient will be discharged We will start [outpatient physical as scheduled]. will follow-up in the office in 2 weeks. No intrahospital complications. Weight / BMI Weight Weight: 194 lb 14.218 oz Body Mass Index (BMI) 25.0 ABG / Lab / Microbiology Data 03/14/24 06:04 03/14/24 06:04 Laboratory: Laboratory Results - last 24 hr 03/14/24 06:04: WBC 12.7 H, RBC 3.73 L, Hgb 11.6 L, Hct 36.1 L, MCV 96.8 H, MCH 31.1, MCHC 32.1, RDW Std Deviation 47.6 H, RDW Coeff of Mickey 13.2, Plt Count 155, MPV 10.5, Sodium 136, Potassium 4.5, Chloride 105, Carbon Dioxide 27.0, Anion Gap 4 L, BUN 18, Creatinine 0.68 L, Estim Creat Clear Calc 97.04, Est GFR (MDRD) Af Amer 148, Est GFR (MDRD) Non-Af 122, BUN/Creatinine Ratio 26.5 H, Glucose 134 H, Calcium 8.7 Microbiology: Microbiology 02/23/24 08:57 Swab (Method) Nasal Screen MRSA/MSSA - Final D/C Instructions Discharge Diet: No restrictions Weight Bearing Status: Full weight bearing Call your doctor if you observe: Shortness of breath and Chest pain Additional Dressing/Incision Instructions: Do not shower 72hrs. Begin daily showering warm water antibacterial soap postop day #3( 72hrs Post-operatively) and then daily. Leave the dressing on for 72 hours postoperatively then may remove prior to first shower and change dressing daily after this until no drainage for 2 consecutive days then may leave open to air. Follow hip precautions that were reviewed in hospital. Wear compression stockings, may remove at night. Start physical therapy as directed in hospital. Follow prescriptions instructions do not take any other pain medication or differ dosing without consulting your physician. Do not take oral NSAIDs until blood thinner has been completed , then may begin the day after completion if needed . Call Dr. Pérez's office with any concerns. Please Follow Up With: Otilio Pérez DO When: 2 weeks Meaningful Use Info Meaningful Use Meaningful Use Diagnoses (Choose all that apply): None applicable Ischemic Stroke Statin Dosing Therapy Reference: STATIN DOSE THERAPY REFERENCE: * Patients > 75 years receive moderate or high dose statin therapy. * Patients 75 years or YOUNGER should receive HIGH intensity statin dose unless contraindicated. You will be required to document reason for non-treatment if statin daily dose does not meet guidelines. HIGH DOSE STATIN THERAPY DAILY Atorvastatin > than or = to 40 mg Rosuvastatin > than or = to 20 mg Amlodipine + Atorvastatin > than or = to 2.5/40 mg Ezetimibe + Simvastatin 10/80 mg Simvastatin 80mg Discharge Plan Admission Admit Date/Time: 03/13/24 10:30 Primary Reason for Your Visit: Right total hip arthroplasty Attending Provider: Otilio Pérez Primary Care Provider: Hue Rodriguez NP Discharge Orders/Prescriptions Prescriptions: New oxycodone 5 mg tablet 5 - 10 mg PO Q6H PRN (Reason: pain) 7 Days Qty: 60 0RF acetaminophen 500 mg tablet 1,000 mg PO Q6H PRN (Reason: pain) Qty: 100 0RF Continued metoprolol succinate 50 mg tablet extended release 24 hr 50 mg PO DAILY rivaroxaban 20 mg tablet 20 mg PO DAILY Rx Instructions: must administer with evening meal clobetasol 0.05 % cream 1 applic TOPICAL BID Qty: 45 12RF Centrum Silver Men [phone] mcg tablet 1 tab PO DAILY Discontinued acetaminophen [Tylenol 8 Hour] 650 mg tablet extended release 650 mg PO Q12H PRN (Reason: pain) tramadol 50 mg tablet 50 mg PO BID PRN (Reason: pain) No Action pravastatin 20 mg tablet 20 mg PO DAILY aspirin 81 mg capsule 81 mg PO DAILY Other Ambulatory Orders: 12 Lead EKG (Routine) Timeframe: 20240223 Location: None Selected Ordered By: Dr. Otilio Péerz Type & Screen - PAT ONLY (Routine) Timeframe: 20240313 Facility: [facility] - Location: Laboratory Ordered By: Dr. Otilio Pérez Referrals / Follow Up: Hue Rodriguez NP, CHEF DE FROID-C [Primary Care Provider] -
--- NOTE | 2024-03-14 12:47 | CASEMGMT ---
Addendum entered by Francesca Rodgers 03/14/24 15:46: Received tc back from Yun at outpt therapy. She received the order and will call pt to set up appt. Addendum entered by Francesca Rodgers 03/14/24 14:49: RN CM into pt room, pt would like to go home. He is aware that the order for therapy was sent to [facility] and that this RN CM requested they call him to set up the time. Placed their number on his dc plan in case he does not hear back in a day or so, he is aware to call them. Pt verbalizes understanding. TC to [facility], left this information via and requested a returned call to make sure the information was received. Addendum entered by Francesca Rodgers 03/14/24 14:32: Received PT order from 's office. Faxed order to [facility] at this time at [phone]. Addendum entered by Francesca Rodgers 03/14/24 14:10: TC to [facility], spoke with Yun, she states they do not have an order for therapy. TC to 's office, spoke with Kiehsa, she will fax order to this RN CM. She states pt can start therapy within a couple of days from surgery. Original Note: TC to [facility] and requested pt meds be delivered to the room. Debra aware.
--- NOTE | 2024-03-14 16:01 | PHA.DC_ITS ---
Pharmacy [place] Med Reconciliation Pharmacy Service has performed discharge medication reconciliation for this patient. Unable to mitochondrial disorders counselor, medications reviewed. The patient's discharge medication list was reviewed for discrepancies and discrepancies were resolved. Medications at Discharge Home Medications metoprolol succinate 50 mg tablet,extended release 24 hr 50 mg PO DAILY HTN 09/11/21 pravastatin 20 mg tablet 20 mg PO DAILY HLD 09/11/21 rivaroxaban 20 mg tablet 20 mg PO DAILY BLOOD THINNER 09/11/21 aspirin 81 mg capsule 81 mg PO DAILY HEART HEALTH 08/23/23 ktveocte-iw-ymrcu 300 mcg-K 60 mcg-lycop 600 mcg-lutein 300 mcg tablet (Centrum Silver Men) 1 tab PO DAILY SUPPLEMENT 08/23/23 clobetasol 0.05 % topical cream 1 applic topical BID psoriasis elbows knees and hairline #45 grams 02/21/24 acetaminophen 500 mg tablet 1,000 mg (2 x 500 mg) PO Q6H PRN pain #100 tabs 03/14/24 oxycodone 5 mg tablet 5 - 10 mg (1 - 2 x 5 mg) PO Q6H PRN pain 7 days #60 tabs 03/14/24
== END 2024-03-14 16:48 | disposition home or self-care (01) | DRG 470 ==
PROVIDERS: Anesthesiology; Admitting Provider Orthopaedic Surgery; PCP Nurse Practitioner; Referring Provider Orthopaedic Surgery; Visit Provider Orthopaedic Surgery
PROC: 8E0Y0CZ Robotic Assisted Procedure of Lower Extremity, Open Approach (ICD-10-PCS; CPT 27130; principal; 2024-03-13 07:00)
DX: M16.11 Unilateral primary osteoarthritis, right hip (principal); E78.00 Pure hypercholesterolemia, unspecified; I10 Essential (primary) hypertension; I48.91 Unspecified atrial fibrillation; I25.10 Atherosclerotic heart disease of native coronary artery without angina pectoris; I25.2 Old myocardial infarction; F17.290 Nicotine dependence, other tobacco product, uncomplicated; Z95.5 Presence of coronary angioplasty implant and graft; Z79.82 Long term (current) use of aspirin; Z79.899 Other long term (current) drug therapy; Z79.01 Long term (current) use of anticoagulants
CPT/HCPCS: 36415; 73502; 80048; 80323; 82962; 83036; 83735; 85025; 85027; 85610; 85730; 86850; 86900; 86901; 87081; 88305; 88311; 93005; 94668; 97162; 97166; 99406; C1713; C1776; J7030; J7120; G0480; J2405; J3475

== ENCOUNTER 2024-04-20 14:00 | Outpatient (RCR) | payer MEDICARE, SELFPAY ==
--- NOTE | 2024-03-22 16:17 | HP.PTEVAL_ITS ---
Patient's Visit Information Visit Information Visit Information: MARCELINO CARDONA is a 73 year old M referred to Physical Therapy by Dr. Otilio Pérez DO with a diagnosis of S/P R THR.. Date of Evaluation: 03/22/24 Physical Therapist: Ilsa Smith, PT, Cert MDT Visit Plan Frequency: 2-3x /Week Duration: 4-6 Weeks Plan: *Check incision each visit until fully healed* 1. Restore hip and knee range of motion. 2. Improve strength of quads, hamstrings and hips in both open and closed chain. 3. Progress gait with LRD as tolerated. Re-integrate functional mobility with stairs and transfers. May use VASO and ice as needed for edema. Scar mobilization. Subjective Subjective: THIS PATIENT PRESENTS TO PT S/P R THR BY DR. PÉREZ 03/13/24. HE REPORTS A 2 YEAR HISTORY OF HIP PAIN AND HE DID EVERYTHING HE COULD TO AVOID SURGERY INCLUDING INJECTIONS AND PHYSICAL THERPAY BUT NOTHING WAS WORKING. HE REPORTS HE HAD DOUBLE HERNIAS REPAIRED IN SEPTEMBER 2023 AND HAD TO WAIT UNTIL NOW TO HAVE HIS HIP DONE. WORSE: SITTING, LYING DOWN, PRESSURE ON INCISION. UNABLE TO GET SOCKS ON. BETTER: STANDING, ICE, MEDICATION, WALKING, ANKLE EX'S, HEEL SLIDES, OTHER: GOING FOR 2 10 MIN WALKS A DAY. JT PAIN IS GONE AND NOW DEALING WITH SOFT TISSUE TRAUMA FROM SURGERY. LIVES ALONE ON 2ND FLOOR AND MENUVENS THEM FINE. GOING UP AND DOWN 2-3 TIMES A DAY. DOING STEPS ONE AT A TIME WITH CANE AND 1 HR. PMH: HEART ATTACH 10 YEARS AGO- ONE STENT. AFIB - TAKES BLOOD THINNERS. SKIN CANCER. LUMBAR SX 20 YEARS AGO. R KNEE SX 20 YEARS AGO. NEXT SURGICAL FOLLOW UP IS Tuesday03/26/24. OCCUPATION: RETIRED. Pain R HIP: Pain Intensity (Out of 10): 3 Pain Intensity Range: 0 and 8 Objective Objective: GAIT: THIS PATIENT AMBULATES INDEP'LY INTO PT TODAY WITH A FWW, DECREASED CADANCE AND A MILD LIMP ON THE RLE. NO LOB. WOMAC score: 68/96 TU.26 SEC WITH FWW R knee flexion AROM: 110 degrees in supine R knee ext AROM: -20 in supine R Hip ext in standing: -10 deg. R knee flex MMT: 31.8# PEAK FORCE, L 49.1# R knee ext MMT: 29.8# PEAK FORCE, L 47.5# R hip flex MMT: 12.3# PEAK FORCE, L 24.3# R hip Ext MMT 3-/5. R ankle MMT 5/5 Palpation: R LE INCISIONS ARE NOT VISIBLE DUE TO BANDAGING BUT THERE IS NOT REDNESS AROUND THE BANDAGES AND NO VISIBLE DRAINAGE. TREATMENT: REVIEWED HEP AND CHECKED TECHNIQUE X 10 REPS: HEEL SLIDES IN CHAIR, SINK EX'S, SUPINE: AP'S, HS'S, QS'S, SLR'S, HIP ABD. PATIENT DEMO'S GOOD EX RETURN TODAY. Balance/Special Test Scores WOMAC Total Score: 68 WOMAC Percentatge: 29.1700 Goals Goal 1:: Pt. will improve R LE strength to symmetrical within 10% L for all motions in order to improve stability and balance. Goal Time Frame: 4-6 Weeks Goal 2:: Pt. will be able to walk at least 10 minutes with cane and no rest break in order to improve endurance. Goal Time Frame: 4-6 Weeks Goal 3:: Pt. will improve be able to tandem stance > 15 secs in order to improve stability and balance. Goal Time Frame: 4-6 Weeks Goal 4:: Pt. will be able to complete at least 8 sit to stands in 30 secs with arm assist in order to improve ADL's. Goal Time Frame: 4-6 Weeks Goal 5:: Pt. will be able to complete LE dressing with no pain or difficulty. Goal Time Frame: 4-6 Weeks Goal 6:: Pt. will improve LEFS score by at least 10 points in order to improve mobility and ADL's. Goal Time Frame: 4-6 Weeks Rehabilitation Potential Physical Therapy Diagnosis: R THR: Decreased R LE strength, ROM, difficulty walking, balance impairment, and pain Rehabilitation Potential: Excellent Anticipated Interventions Patient/Client Instruction: Educate patient on: Condition, Plan of Care and Risk Factors For the Purpose of:: To improve self management Therapeutic Exercise to Include: Strength training, Endurance training, Balance training, Flexibilty training, Gait and locomotor training, Neuromotor development and Active ROM For the Purpose of:: To decrease pain, To decrease swelling/inflammation, To increase ROM, To improve muscle performance and motor function, To improve ability to perform ADL's, To increase tolerance to activity/condition/position, To improve ability of physical actions for home/community/work/leisure, To improve gait and locomotor functions, To increase flexibility/ROM, To improve endurance, To improve balance and To improve self management Text: Thank you for the opportunity to evaluate your patient. For Medicare and Medicare HMO plans, please review the plan of care and approve it. It will need to be FAXED BACK to us at [phone] for Medicare purposes. For Medicare only, by signing this I certify the plan of care. Please let me know if there are questions or concerns regarding this plan of care. Physician Signature: Date:
--- NOTE | 2024-04-20 14:53 | HP.PTDCSUM ---
Discharge Summary D/C summary: It has been my pleasure to treat MARCELINO CARDONA referred by Dr. Otilio Pérez DO, with the diagnosis of S/P R THR. for a total of 10 visit(s). Discharge Date: 04/20/24 Please see the following information for a summary of their discharge status. Subjective Subjective: PATIENT REPORTS HE IS REALLY HAPPY WITH HIS PROGRESS. HE STATES HE IS TAKING 20 MIN WALKS DAILY AND HASN'T BEEN USING THE CANE FOR A WEEK NOW. STATED INDEP GYM EX WITH HIS [employer] MEMBER[employer]IP WITH THE PROGRAM WE GAVE HIM SINCE LAST VISIT AND IT WENT WELL. NO QUESTIONS OR CONCERNS AT THIS POINT. PLANS TO FOLLOW UP WITH SURGEON TUESDAY. Pain R HIP: Pain Intensity (Out of 10): 0 Overall Improvement % Improvement: 110 Objective Objective/Function: PATIENT WAS SEEN TODAY FOR RE-ASSESSMENT OF PROGRESS TOWARD THE SET PT GOALS AND THE NEED FOR FURTHER PHYSICAL THERAPY VS READINESS FOR DISCHARGE. THIS PATIENT HAS DONE GREAT WITH REHAB. HE IS INDEP WITH HOME AND GYM EX PROGRAMS AND APPROPRIATE FOR AND AGREEABLE TO DISCHARGE AT THIS POINT. UPON EXAM TODAY: HE AMBULATES INDEP'LY INTO PT TODAY WITHOUT ANY AD'S OR GROSS DEVIATIONS NOTED. HE IS ABLE TO ASCEND AND DESCEND STEPS RECIP WITH ONE HR WITHOUT LIMITATION. WOMAC score: 17 /96 TU.46 SEC WITHOUT AD 30 STS TEST = 10 WITHOUT UE ASSIST R knee flexion AROM: 110 degrees in supine R knee ext AROM: FULL in supine R Hip ext in standing: +5 DEG R knee flex MMT: 60.1# PEAK FORCE, L 59.9# R knee ext MMT: 63.5# PEAK FORCE, L 63.6# R hip flex MMT: 35.2# PEAK FORCE, L 35.7# R hip Ext MMT 5/5. R ankle MMT 5/5 TANDEM STANCE - 15+ SEC WITHOUT UE ASSIST WITH EA LE IN FRONT OF THE OTHER. Goals Goal 1:: Pt. will improve R LE strength to symmetrical within 10% L for all motions in order to improve stability and balance. Goal Progress: Goal Met Goal 2:: Pt. will be able to walk at least 10 minutes with cane and no rest break in order to improve endurance. Goal Progress: Goal Met Goal 3:: Pt. will improve be able to tandem stance > 15 secs in order to improve stability and balance. Goal Progress: Goal Met Goal 4:: Pt. will be able to complete at least 8 sit to stands in 30 secs with arm assist in order to improve ADL's. Goal Progress: Goal Met Goal 5:: Pt. will be able to complete LE dressing with no pain or difficulty. Goal Progress: Progressing Goal 6:: Pt. will improve LEFS score by at least 10 points in order to improve mobility and ADL's. Goal Progress: Goal Met Plan Plan: D/C. D/C Information d/c sentence: If there are questions or concerns regarding this patient's physical therapy, please feel free to call me at [phone]. Thank you for the referral of this patient. Sincerely, Ilsa Smith, PT, Cert MDT Balance/Gait/Functional tests Balance/Special Test Scores Lower Extremity Functional Score: 58 WOMAC Total Score: 17 WOMAC Percentage: 82.3000 Improvement % Improvement: 110
== END 2024-04-20 19:00 | disposition home or self-care (01) ==
LOC: PT 14:00
PROVIDERS: PCP Nurse Practitioner; Referring Provider Orthopaedic Surgery; Visit Provider Orthopaedic Surgery
DX: M16.11 Unilateral primary osteoarthritis, right hip (principal); Z96.641 Presence of right artificial hip joint
CPT/HCPCS: 97110; 97116; 97530